=== PATIENT | female | born 1970 | race Caucasian/White ===

== ENCOUNTER → 2020-12-27 01:39 | Outpatient (CLI) | payer OTHER, SELFPAY ==
[2020-12-28 08:28] LABS: SARS-CoV-2 RNA PCR Negative
== END ==
PROVIDERS: PCP Internal Medicine; Visit Provider Internal Medicine Gastroenterology
DX: Z01.812 Encounter for preprocedural laboratory examination (principal); Z20.822 Contact with and (suspected) exposure to COVID-19
CPT/HCPCS: C9803; U0003; U0005

== ENCOUNTER 2020-12-30 01:17 | Day surgery (SDC) | payer OTHER, SELFPAY ==
[2020-12-16 14:10] VITALS: BMI 30.6
[2020-12-30 07:10] VITALS: BP 139/85; PULSE 88; RESP 16; TEMP 37.1; O2SAT 100
[2020-12-30] MEDS: LACTATED RINGERS 1,000 ML 150 ML IV CONT (07:23)
--- NOTE | 2020-12-30 07:44 | WPDANESEPPF ---
Anes - Initial Pre Proc Eval Procedure: Operation Date: 12/30/20 08:30 Proposed Procedures p Screening Colonoscopy - Jc Fountain MD Date/Time: 12/30/20 07:44 Surgeon: Jc Fountain MD Pre Op Diagnosis: Neoplasm Screening Patient Data Age: 50 Gender: F Height: 5 ft 6 in Weight: 85.6 kg Last Vital Signs Temp 98.8 F 12/30/20 07:10 Pulse 88 12/30/20 07:10 Resp 16 12/30/20 07:10 BP 139/85 12/30/20 07:10 Pulse Ox 100 12/30/20 07:10 Allergies Allergy/AdvReac Type Severity Reaction Status Date / Time No Known Allergies Allergy Verified 12/16/20 14:12 Home Medications Medication Instructions Recorded Confirmed Type calcium carbonate 600 mg calcium 600 mg PO DAILY 10/11/20 12/16/20 History (1,500 mg) tablet chlorophyll copper complex 50 mg 50 mg PO DAILY 10/11/20 12/16/20 History capsule magnesium hydroxide 400 mg/5 mL 5 ml PO DAILY PRN 10/11/20 12/16/20 History oral suspension xkbmwtfqbpck-evclhpcg-brmusk tablet 1 tablet PO DAILY 10/11/20 12/16/20 History norethindrone-eth. estradiol-iron 1 tablet PO DAILY 10/11/20 12/16/20 History 1-20 (5)/1-30(7)/1mg-35mcg(9) tablet Patient hx anesthesia problems: none Family hx anesthesia problems: none PMFSH Past Medical History Medical History (Updated 12/30/20 @ 07:39 by Justin Lion MD) Migraine Social History Social History Smoking status: Never smoker Alcohol intake: never Substance use: never Substance use type: does not use Living arrangements: alone Spiritual care concerns: No Anes - Eval Final PreProcedure Day of Procedure 12/30/20 07:44 Patient weight: normal Heart: regular rate and rhythm Lungs: clear to auscultation Airway: Mallampati scale class II Neurological: alert and oriented Last oral intake: >/= 8 hours ASA classification: II Emergent: no Anesthetic plan: proceed Anesthesia type and monitoring: general GIVS and standard monitoring Informed Consent: The patient's anesthetic plan and its attendant risks and benefits were discussed with the patient/family/POA. Questions were solicited and answers provided to the satisfaction of the patient/family/POA.
--- NOTE | 2020-12-30 08:34 | PM.HPGS ---
History of Present Illness History of Present Illness Consent: Risks, benefits, and alternatives have been discussed and questions answered. Patient agrees to proceed with procedure. Chief complaint: Neoplasm Screening Narrative: Di Canales is a 50 year old female here for first screening colonoscopy Review of Systems Constitutional: Constitutional: Denies headache(s) and Denies weakness Eyes: Eyes: Denies blurry vision ENT: Reports Normal hearing present, Denies headache(s) and Denies neck pain Cardiovascular: Cardiovascular: Denies chest pain and Denies dyspnea Respiratory: Respiratory: Denies dyspnea Gastrointestinal: Gastrointestinal: Reports no additional gastrointestinal complaints Genitourinary: Genitourinary: Denies dysuria Musculoskeletal: Musculoskeletal: Denies neck pain Integumentary/Breasts: Skin/Breast: Denies dry skin Neurologic: Reports Normal hearing present, Denies headache(s) and Denies weakness Psychiatric: Psychiatric: Denies anxiety Endocrine: Endocrine: Denies change in body appearance Hematologic/Lymphatic: Hematologic/Lymphatic: Denies easy bleeding Allergic/Immunologic: Allergic/Immunologic: Denies urticaria PMFSH Past Medical History Medical History (Updated 12/30/20 @ 07:39 by Justin Lion MD) Migraine Social History Social History Smoking status: Never smoker Alcohol intake: never Substance use: never Substance use type: does not use Living arrangements: alone Spiritual care concerns: No Meds Home Medications and Allergies Home Medications Medication Instructions Recorded Confirmed Type calcium carbonate 600 mg calcium 600 mg PO DAILY 10/11/20 12/16/20 History (1,500 mg) tablet chlorophyll copper complex 50 mg 50 mg PO DAILY 10/11/20 12/16/20 History capsule magnesium hydroxide 400 mg/5 mL 5 ml PO DAILY PRN 10/11/20 12/16/20 History oral suspension tspgkvmebogd-jruhkeaq-amiqyv tablet 1 tablet PO DAILY 10/11/20 12/16/20 History norethindrone-eth. estradiol-iron 1 tablet PO DAILY 10/11/20 12/16/20 History 1-20 (5)/1-30(7)/1mg-35mcg(9) tablet Allergies Allergy/AdvReac Type Severity Reaction Status Date / Time No Known Allergies Allergy Verified 12/16/20 14:12 Vital Signs Vital Signs - 24 hr 12/30/20 07:10 Temperature 98.8 F Pulse Rate 88 Respiratory Rate 16 Blood Pressure 139/85 Pulse Oximetry 100 Exam Const: General: comfortable and no acute distress HENMT: General nose exam: Normal nares present Eyes: General: appearance normal, both eyes and all related structures Neck: Neck: no JVD Resp: Auscultation: clear to auscultation bilaterally Cardio: Rate: regular rate Rhythm: regular rhythm GI: Inspection: non-distended GI Palp: Yes Soft to palpation Skin: General skin exam: normal color Neuro: General: gait normal Speech: normal speech Extrem: General: normal to inspection Psych: Mental Status: mental status grossly normal Assessment and Plan Assessment and plan (1) Encounter for screening colonoscopy: Code(s): Z12.11 - Encounter for screening for malignant neoplasm of colon Status: Acute Assessment and Plan: proceed with colonoscopy
[2020-12-30 08:49] VITALS: BP 94/54; PULSE 81; RESP 22; O2SAT 100
[2020-12-30 08:59] VITALS: BP 106/57; PULSE 73; RESP 20; O2SAT 99
[2020-12-30 09:09] VITALS: BP 112/70; PULSE 69; RESP 20; O2SAT 100
== END 2020-12-30 09:23 | disposition home or self-care (01) ==
PROVIDERS: PCP Internal Medicine; Visit Provider Internal Medicine Gastroenterology
PROC: 0DJD8ZZ Inspection of Lower Intestinal Tract, Via Natural or Artificial Opening Endoscopic (ICD-10-PCS; CPT 45378; principal; 2020-12-30 08:30)
DX: Z12.11 Encounter for screening for malignant neoplasm of colon (principal); D12.2 Benign neoplasm of ascending colon; K64.8 Other hemorrhoids
CPT/HCPCS: 45380; 88305; C9803; J2704; J7120; U0003; U0005

== ENCOUNTER 2021-01-31 08:29 | Outpatient (CLI) | payer OTHER, SELFPAY ==
--- NOTE | ~2021-01-31 | MM_ITS ---
EXAMINATION: MM scrn angelo implant BI w nara HISTORY: Screening mammogram TECHNIQUE: Craniocaudal and mediolateral oblique 3-D tomosynthesis images with implant displacement a nd synthetic 2-D images were generated. Craniocaudal and mediolateral oblique views of the breasts wi thout implant displacement were obtained using full field digital mammography. CAD analysis was submi tted and interpreted. COMPARISON: No prior mammogram is available for comparison at this institution. BREAST PARENCHYMAL COMPOSITION: The breasts are heterogeneously dense, which may obscure small masses . FINDINGS: Status post bilateral augmentation mammoplasty. There is no evidence of suspicious mass, ca lcification, or architectural distortion to suggest malignancy in either breast. There has been no mitchell spicious interval change. IMPRESSION: 1. No mammographic evidence of malignancy. 2. Recommend routine screening mammography in one year. BI-RADS Category 1: Negative Reviewed, dictated and finalized at location A.
== END 2021-01-31 08:30 | disposition home or self-care (01) ==
LOC: ANHIMG 08:32
PROVIDERS: PCP Internal Medicine; Visit Provider Obstetrics & Gynecology
DX: Z12.31 Encounter for screening mammogram for malignant neoplasm of breast (principal)
CPT/HCPCS: 77063; 77067

== ENCOUNTER → 2021-08-28 08:58 | Outpatient (CLI) | payer OTHER, SELFPAY ==
--- NOTE | ~2021-08-28 | XR_ITS ---
EXAMINATION: XR_[id number]_CR EXAM DATE: 08/28/2021 09:22 INDICATION: Radiculopathy, cervical region. TECHNIQUE: Cervical spine frontal, lateral, lateral swimmers, and open-mouth odontoid projections. There is no prior study for comparison. FINDINGS: There is moderate disc disease at C5-6, mild at C4-5. There is 2-3 mm anterolisthesis C4 o n C5, degenerative with mild loss of this disc height. The vertebral body and disc heights are otherw ise well maintained. The vertebral bodies are otherwise aligned. There are no acute fractures identif ied. The odontoid process is intact. The lateral masses of C1 line up with C2. Prevertebral soft tis yuliana and pre-dens space are within normal limits. There is mild to moderate cervical arthropathy. Lung apices are clear. IMPRESSION: 1. Grade 1 anterolisthesis C4 on C5. 2. Moderate disc disease C5-6. 3. Mild to moderate arthropathy. Reviewed, dictated and finalized at location A.
== END ==
PROVIDERS: PCP Internal Medicine; Visit Provider Internal Medicine
DX: M54.12 Radiculopathy, cervical region (principal); M50.322 Other cervical disc degeneration at C5-C6 level
CPT/HCPCS: 72040

== ENCOUNTER 2022-03-17 08:52 | Outpatient (CLI) | payer OTHER, SELFPAY ==
--- NOTE | ~2022-03-17 | MM_ITS ---
EXAMINATION: MM scrn angelo implant BI w nara HISTORY: Screening mammogram TECHNIQUE: Craniocaudal and mediolateral oblique 3-D tomosynthesis images with implant displacement a nd synthetic 2-D images were generated. Craniocaudal and mediolateral oblique views of the breasts wi thout implant displacement were obtained using full field digital mammography. CAD analysis was submi tted and interpreted. COMPARISON: 01/31/2021 bilateral implant screening mammogram BREAST PARENCHYMAL COMPOSITION: The breasts are heterogeneously dense, which may obscure small masses . FINDINGS: Status post bilateral augmentation mammoplasty. There is no evidence of suspicious mass, ca lcification, or architectural distortion to suggest malignancy in either breast. There has been no mitchell spicious interval change. IMPRESSION: 1. No mammographic evidence of malignancy. 2. Recommend routine screening mammography in one year. BI-RADS Category 1: Negative Reviewed, dictated and finalized at location A.
== END 2022-03-17 08:53 | disposition home or self-care (01) ==
LOC: ANHIMG 08:53
PROVIDERS: PCP Internal Medicine; Visit Provider Obstetrics & Gynecology
DX: Z12.31 Encounter for screening mammogram for malignant neoplasm of breast (principal)
CPT/HCPCS: 77063; 77067

== ENCOUNTER → 2022-06-30 13:35 | Outpatient (CLI) | payer OTHER, SELFPAY ==
--- NOTE | ~2022-06-30 | XR_ITS ---
EXAMINATION: XR hip BI 2V w AP pelvis, XR femur RT min 2V, XR femur LT min 2V DATE: 06/30/2022 14:20 INDICATION: 4 months of aching pain starting in the hips and radiating down to the bilateral lower le gs TECHNIQUE: 1. Anteroposterior view of the pelvis and anteroposterior and frog-leg lateral views of the left hip and anteroposterior and frog-leg lateral views of the right hip and were obtained. 2. Anteroposterior and lateral views of the more distal left femur were obtained. 3. Anteroposterior and lateral views of the more distal right femur were obtained. COMPARISON: None. FINDINGS: Normal alignment at the pelvis, bilateral hips and knees. No fractures. No suspected osteonecrosis at the femoral heads. Bilateral hip, sacroiliac and knee joint spaces appear relatively preserved on mitchell pine imaging. No knee joint effusions. There is lower lumbar facet osteoarthritis and at least 3 mm l eft lateral listhesis L4 on L5. Soft tissues are unremarkable. IMPRESSION: 1. Lower lumbar spondylosis evident on the frontal projection of the pelvis which is insufficient for diagnostic assessment. Otherwise unremarkable radiographs of the pelvis and bilateral hips and femur s. Reviewed, dictated and finalized at location A. IMPRESSION: 1. Lower lumbar spondylosis evident on the frontal projection of the pelvis i is insufficient for diagnostic assessment. Otherwise unremarkable radiograph s of the pelvis and bilateral hips and femurs. IMPRESSION: 1. Lower lumbar spondylosis evident on the frontal projection of the pelvis whi is insufficient for diagnostic assessment. Otherwise unremarkable radiograph s of the pelvis and bilateral hips and femurs.
== END ==
PROVIDERS: PCP Internal Medicine; Visit Provider Internal Medicine
DX: M25.551 Pain in right hip (principal); M25.552 Pain in left hip; M79.662 Pain in left lower leg; M79.652 Pain in left thigh; M47.896 Other spondylosis, lumbar region
CPT/HCPCS: 73521; 73552

== ENCOUNTER → 2022-08-07 09:39 | Outpatient (CLI) | payer OTHER, SELFPAY ==
--- NOTE | ~2022-08-07 | MR_ITS ---
EXAMINATION: MR brain/brain stem wo con DATE: 08/07/2022 10:16 INDICATION: Dizziness. TECHNIQUE: Magnetic resonance imaging (MRI) of the brain and brainstem was performed without intraven ous contrast. COMPARISON: None. FINDINGS: There is no intracranial hemorrhage, acute infarction, or abnormal intracranial mass lesion . The ventricles are normal in size. The mastoid air cells are normal. There is mild mucosal thickeni ng in the ethmoid sinuses. The orbits are normal. IMPRESSION: 1. Normal brain. Reviewed, dictated and finalized at location A. IMPRESSION: 1. Normal brain.
== END ==
PROVIDERS: PCP Internal Medicine; Visit Provider Internal Medicine
DX: R42 Dizziness and giddiness (principal)
CPT/HCPCS: 70551

== ENCOUNTER → 2022-08-15 07:37 | Outpatient (CLI) | payer OTHER, SELFPAY ==
--- NOTE | ~2022-08-15 | MR_ITS ---
EXAMINATION: MR lumbar spine wo con DATE: 08/15/2022 08:18 INDICATION: Bilateral hip and leg pain. TECHNIQUE: Magnetic resonance imaging (MRI) of the lumbar spine was performed without intravenous con trast. Sequences included sagittal T2-weighted FSE, sagittal T2-weighted FS FSE, sagittal T1-weighted FSE, and axial T2-weighted FSE. COMPARISON: None FINDINGS: There is 3 degrees levocurvature of lumbar spine. There is 2 mm retrolisthesis of L2 on L3 and L3 on L4. There is mild chronic anterior wedging of T11 vertebral body. There is moderately decre ased disc height at T10-T11 and T11-T12, mildly decreased disc height at L1-L2, L3-L4, and L4-L5, and severely decreased disc height at L5-S1 with endplate remodeling. The distal spinal cord signal inte nsity is normal. The conus medullaris is at L2. The following disc levels are specifically discussed: L1-L2: The disc is bulging. There is no facet joint osteoarthritis. There is mild bilateral neural fo raminal stenosis. There is mild central canal stenosis. L2-L3: The disc is bulging. There is mild bilateral facet joint osteoarthritis. There is mild bilater al neural foraminal stenosis. There is mild central canal stenosis. L3-L4: The disc is bulging. There is mild bilateral facet joint osteoarthritis. There is mild bilater al neural foraminal stenosis. There is mild central canal stenosis. L4-L5: The disc is bulging and has an annular fissure. There is severe bilateral facet joint osteoart hritis. There is mild bilateral neural foraminal stenosis. There is mild central canal stenosis. L5-S1: The disc is bulging and has an annular fissure. There is severe right and moderate left facet joint osteoarthritis. There is mild bilateral neural foraminal stenosis. There is mild central canal stenosis. IMPRESSION: 1. Severe lumbar spondylosis. Reviewed, dictated and finalized at location A.
== END ==
PROVIDERS: PCP Internal Medicine; Visit Provider Internal Medicine
DX: M25.551 Pain in right hip (principal); M25.552 Pain in left hip; R29.898 Other symptoms and signs involving the musculoskeletal system; M47.896 Other spondylosis, lumbar region
CPT/HCPCS: 72148

== ENCOUNTER 2022-11-03 12:38 | Outpatient (CLI) | payer OTHER, SELFPAY | END 2022-11-03 12:39 | disposition home or self-care (01) | LOC: ANHAUDIO 12:39 | PROVIDERS: PCP Internal Medicine; Visit Provider Otolaryngology | DX: H93.11 Tinnitus, right ear (principal) | CPT/HCPCS: 92552; 92556; 92567 ==

== ENCOUNTER → 2023-02-05 08:10 | Outpatient (CLI) | payer OTHER, SELFPAY ==
--- NOTE | ~2023-02-05 | CT_ITS ---
EXAMINATION: CT lumbar spine wo con DATE: 02/05/2023 08:27 INDICATION: Low back pain radiating down both legs. TECHNIQUE: Computed tomography (CT) of the lumbar spine was performed without intravenous contrast. A utomated exposure control and iterative reconstruction technique were employed. The dose-length produ ct was 730.61 mGy-cm. COMPARISON: Lumbar spine MRI 08/15/2022 FINDINGS: There are calcified fibroids in the uterus. There is 9 degrees levocurvature of lumbar spin e. Vertebral body heights are normal. There is severely decreased disc height at T11-T12, moderately decreased disc height at L1-L2, mildly decreased disc height at L3-L4 and L4-L5, and severely decreas ed disc height at L5-S1. The following disc levels are specifically discussed: L1-L2: The disc is bulging. There is mild bilateral facet joint osteoarthritis. There is mild bilater al neural foraminal stenosis. There is mild central canal stenosis. L2-L3: The disc is bulging. There is mild bilateral facet joint osteoarthritis. There is mild bilater al neural foraminal stenosis. There is mild central canal stenosis. L3-L4: The disc is bulging. There is mild bilateral facet joint osteoarthritis. There is mild bilater al neural foraminal stenosis. There is mild central canal stenosis. L4-L5: The disc is bulging. There is severe bilateral facet joint osteoarthritis. There is mild bilat eral neural foraminal stenosis. There is mild central canal stenosis. L5-S1: The disc is bulging. There is moderate bilateral facet joint osteoarthritis. There is mild abeba ateral neural foraminal stenosis. There is mild central canal stenosis. IMPRESSION: 1. Severe lumbar spondylosis. Reviewed, dictated and finalized at location A.
== END ==
PROVIDERS: PCP Chiropractor; Visit Provider Neurological Surgery
DX: M47.816 Spondylosis without myelopathy or radiculopathy, lumbar region (principal)
CPT/HCPCS: 72131

== ENCOUNTER 2023-05-10 07:25 | Outpatient (CLI) | payer OTHER, SELFPAY ==
--- NOTE | ~2023-05-10 | MM_ITS ---
EXAMINATION: MM scrn angelo implant BI w nara HISTORY: Screening mammogram TECHNIQUE: Craniocaudal and mediolateral oblique 3-D tomosynthesis images with implant displacement a nd synthetic 2-D images were generated. Craniocaudal and mediolateral oblique views of the breasts wi thout implant displacement were obtained using full field digital mammography. CAD analysis was submi tted and interpreted. COMPARISON: Comparison to multiple prior studies sequentially, with oldest reviewed study dated 06/2021. BREAST PARENCHYMAL COMPOSITION: The breasts are heterogeneously dense, which may obscure small masses FINDINGS: There is no evidence of suspicious mass, calcification, or architectural distortion to sugg est malignancy in either breast. There has been no suspicious interval change. IMPRESSION: 1. No mammographic evidence of malignancy. 2. Recommend routine screening mammography in one year. BI-RADS Category 1: Negative Reviewed, dictated and finalized at location A.
== END 2023-05-10 07:26 | disposition home or self-care (01) ==
LOC: ANHIMG 07:28
PROVIDERS: PCP Family Medicine; Visit Provider Obstetrics & Gynecology
DX: Z12.31 Encounter for screening mammogram for malignant neoplasm of breast (principal)
CPT/HCPCS: 77063; 77067

== ENCOUNTER 2024-05-12 08:35 | Outpatient (CLI) | payer OTHER, SELFPAY ==
--- NOTE | ~2024-05-12 | MM_ITS ---
EXAMINATION: MM scrn angelo implant BI w nara HISTORY: Screening mammogram TECHNIQUE: Craniocaudal and mediolateral oblique 3-D tomosynthesis images with implant displacement a nd synthetic 2-D images were generated. Craniocaudal and mediolateral oblique views of the breasts wi thout implant displacement were obtained using full field digital mammography. CAD analysis was submi tted and interpreted. COMPARISON: Comparison to multiple prior studies sequentially, with oldest reviewed study dated 06/2021. BREAST PARENCHYMAL COMPOSITION: Dense: The breasts are heterogeneously dense, which may obscure small masses FINDINGS: There is no evidence of suspicious mass, calcification, or architectural distortion to sugg est malignancy in either breast. There has been no suspicious interval change. IMPRESSION: 1. No mammographic evidence of malignancy. 2. Recommend routine screening mammography in one year. BI-RADS Category 1: Negative Reviewed, dictated and finalized at location B.
== END 2024-05-12 08:36 | disposition home or self-care (01) ==
LOC: ANHIMG 08:38
PROVIDERS: PCP Family Medicine; Visit Provider Obstetrics & Gynecology
DX: Z12.31 Encounter for screening mammogram for malignant neoplasm of breast (principal)
CPT/HCPCS: 77063; 77067

== ENCOUNTER 2024-12-05 07:29 | Outpatient (CLI) | payer OTHER, SELFPAY ==
--- OUTSIDE RECORDS SUMMARY | 2024-12-05 07:35 | XMS_ITS | Encounter Summary ---
Author Organization [facility] Address [address] [place] [address] Care Team Providers Care Terminal Makeup Operator Name Role Phone Unavailable Primary Care Provider Unavailabl e Encounter Details Date Type Department Care Team (Late st Contact Info) Description 07/25/2001 Outpatient Historical [facility] [phone] [address] Juan Hector MD [address] [place] [id number] Social History Tobacco Use Types Packs/Day Years Used Date Smoking Tobacco: Never Assessed Comments Unknown Sex and Gender Information Value Date Recorded Sex Assigned at Not on file 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
--- OUTSIDE RECORDS SUMMARY | 2024-12-05 07:35 | XMS_ITS | Encounter Summary ---
Author Organization [facility] Address [address] [place] [address] Care Team Providers Care Public Relations Director Name Role Phone Unavailable Primary Care Provider Unavailabl e Encounter Details Date Type Department Care Team (Late st Contact Info) Description 04/25/2001 Outpatient Historical 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
--- OUTSIDE RECORDS SUMMARY | 2024-12-05 07:35 | XMS_ITS | Patient Health Summary ---
Author Organization [facility] Address [address] [place] [address] Care Team Providers Care Health Promotion Officer Name Role Phone Alfredo Diamond MD Primary Care Provider [phone] Note from [facility],non-owned Affiliates and Associated Physician Practices is amultiple site organization consisting of ambulatory clinics and hospital sitesin [place], [place], [place] and [place]. This disclosure is being madepursuant to the Care Everywhere program and may not contain all information available regarding this patient. Last updated 18.[facility] Allergies No known active allergies Medications * Be aware that medications may not be up to date on this document. Alwaysverify current medications with the patient. * tretinoin (RETIN-A) 0.1 % cream(Started 01/01/2012) Apply to affected area at bedtime. * Calcium Carbonate Antacid (TUMS PO) Take 1 Tab by mouth as needed. * Multiple Vitamin (MULTI-VITAMIN DAILY PO) Take 1 Tab by mouth once daily. unsure of dose. * calcium carbonate (Caltrate) 600 MG tablet Take 1 (one) tablet by mouth 2 times daily * vitamin D, ergocalciferol, (DRISDOL) 64899 UNITS capsule(Started 10/12/2018) Take 1 capsule by mouth every 7 days 1 refill remaining * biotin 5 MG tablet Take 1 (one) tablet by mouth once daily * norethindrone-ethinyl estradiol (Femhrt 10/29) 1-5 MG-MCG tablet(Started 09/04/2024) Take 1 (one) tablet by mouth once daily 3 refills by 09/04/2025 Active Problems Problem Noted Date Diagnosed Date Musculoskeletal pain 04/11/2013 Vitamin D deficiency 02/08/2012 Weight gain 01/10/2012 Cold hands 01/10/2012 Fatigue 01/10/2012 Hair thinning 01/10/2012 Screening for cervical cancer 01/10/2012 GERD (gastroesophageal reflux disease) Resolved Problems Problem Noted Date Diagnosed Date Resolved Date Elevated BP 01/10/2012 02/08/2012 Generalized headaches 2011 Social History Tobacco Use Types Packs/Day Years Used Date Smoking Tobacco: Never Smokeless Tobacco: Never Tobacco Cessation:Counseling Given: Not Answered Alcohol Use Standard Drinks/Week Comments Yes 0 (1 standard drink = 0.6 oz pur e alcohol) occasional PHQ-2 Answer Date Recorded Patient Health Questionnaire-2 Score 0 08/23/2023 Sex and Gender Information Value Date Recorded Sex Assigned at Not on file Gender Identity Not on file Sexual Orientation Not on file Last Filed Vital Signs Vital Sign Reading Time Taken Comments Blood Pressure 126/82 10/16/2024 10:19 AM BOOTH USHER Pulse 66 04/11/2013 9:00 PM CDT Temperature 36.8 C (98.2 F) 04/11/2013 4:42 PM CDT Respiratory Rate 20 04/11/2013 9:00 PM CDT Oxygen Saturation 96% 04/11/2013 9:00 PM CDT Inhaled Oxygen Concentration - - Weight 81.6 kg (180 lb) 09/04/2024 9:06 AM BOOTH USHER Height 164 cm (5' 4.57 ) 10/16/2024 10:19 AM BOOTH USHER Body Mass Index 30.36 09/04/2024 9:06 AM BOOTH USHER Procedures * CT ABDOMEN PELVIS W CONTRAST(Performed 11/03/2024) Performed for Pelvic pain in female * NON-OB PELVIC SONOGRAM(Performed 10/16/2024) Performed for Pelvic pain in female * PAP IG LB+HPV APTIMA(Performed 09/04/2024) Performed for Well woman exam * OCCULT BLOOD FECES 1-3 SCREEN POINT OF CARE (AMB)(Performed 09/04/2024) Performed for Colon cancer screening * MAMMOGRAM(Performed 05/12/2024) * PAP IG LB+HPV APTIMA(Performed 08/23/2023) Performed for Well woman exam * OCCULT BLOOD FECES 1-3 SCREEN POINT OF CARE (AMB)(Performed 08/23/2023) Performed for Colon cancer screening * PAP IG LB+HPV APTIMA(Performed 07/24/2022) Performed for Well woman exam * OCCULT BLOOD FECES 1-3 SCREEN POINT OF CARE (AMB)(Performed 07/24/2022) Performed for Colon cancer screening * MAMMO BILAT SCREENING(Performed 03/17/2022) Performed for Well woman exam * PAP IG LB+HPV APTIMA(Performed 07/18/2021) Performed for Well woman exam * OCCULT BLOOD FECES 1-3 SCREEN POINT OF CARE (AMB)(Performed 07/18/2021) Performed for Colon cancer screening * MAMMO BILAT SCREENING(Performed 01/31/2021) Performed for Well woman exam * US TRANSVAGINAL NON OB(Performed 05/09/2020) Performed for Lower abdominal pain * FSH(Performed 04/22/2020) Performed for Encounter for surveillance of contraceptive pills * PAP IG LB + HPV HR(Performed 04/12/2020) Performed for Well woman exam * URINALYSIS AUTO - POINT OF CARE (AMB) STL(Performed 04/12/2020) Performed for Dysuria * OCCULT BLOOD FECES 1-3 SCREEN POINT OF CARE (AMB)(Performed 04/12/2020) Performed for Colon cancer screening * MAMMOGRAPHY ORDER(Performed 01/04/2019) * US TRANSVAGINAL NON OB(Performed 12/09/2018) Performed for Enlarged uterus * FSH(Performed 12/05/2018) Performed for Encounter for surveillance of contraceptive pills * PAP IG LB + HPV HR(Performed 11/26/2018) Performed for Well woman exam * OCCULT BLOOD FECES 1-3 SCREEN POINT OF CARE (AMB)(Performed 11/26/2018) Performed for Colon cancer screening * CBC W AUTO DIFFERENTIAL(Performed 10/30/2017) Performed for Well woman exam * VITAMIN D 25-HYDROXY(Performed 10/30/2017) Performed for Well woman exam * COMPREHENSIVE METABOLIC PANEL(Performed 10/30/2017) Performed for Well woman exam * LIPID PROFILE W TCHOL/HDL(Performed 10/30/2017) Performed for Well woman exam * TSH(Performed 10/30/2017) Performed for Well woman exam * PAP IG LB + HPV HR(Performed 10/30/2017) Performed for Well woman exam * MAMMO SCREENING BILATERAL(Performed 12/18/2016) * PAP IG LB + HPV HR(Performed 10/22/2016) Performed for Well woman exam * CBC W AUTO DIFFERENTIAL(Performed 06/21/2013) Performed for Family history of ischemic heart disease * BASIC METABOLIC PANEL (CALCIUM TOTAL)(Performed 06/21/2013) Performed for Family history of ischemic heart disease * LDL CHOLESTEROL DIRECT(Performed 06/21/2013) Performed for Family history of ischemic heart disease * LIPID PROFILE(Performed 06/21/2013) Performed for Family history of ischemic heart disease * HEMOGLOBIN A1C(Performed 06/21/2013) Performed for Family history of ischemic heart disease * CT ANGIO CHEST PULM EMBOLISM(Performed 04/11/2013) * URINALYSIS REFLEX TO MICROSCOPIC NO CULTURE(Performed 04/11/2013) * XR CHEST 2VW(Performed 04/11/2013) * US ABDOMEN LIMITED(Performed 04/11/2013) * HCG URINE QUALITATIVE - POINT OF CARE(Performed 04/11/2013) * HCG URINE QUALITATIVE(Performed 04/11/2013) * COMPREHENSIVE METABOLIC PANEL(Performed 04/11/2013) * CBC W AUTO DIFFERENTIAL(Performed 04/11/2013) * EKG 12-LEAD(Performed 04/11/2013) * VITAMIN D 25-HYDROXY(Performed 01/05/2012) Performed for Special screening for osteoporosis * TSH(Performed 01/05/2012) Performed for Cold hands, Fatigue, Hair thinning, Weight gain * VITAMIN B12(Performed 01/05/2012) Performed for Fatigue, Hair thinning * CBC W AUTO DIFFERENTIAL(Performed 01/05/2012) Performed for Routine general medical examination at a health care facility, Anemia * COMPREHENSIVE METABOLIC PANEL(Performed 01/05/2012) Performed for Routine general medical examination at a health care facility * LIPID PROFILE(Performed 01/05/2012) Performed for Routine general medical examination at a health care facility, Screening cholesterol level * NM HEPATOBILIARY WO EF(Performed 06/01/2011) * LAB RESULTS ORDER(Performed 05/28/2011) * GROSS + MICRO EXAM(Performed 05/15/2011) * GROSS + MICRO EXAM(Performed 05/15/2011) * HELICOBACTER PYLORI UREASE(Performed 05/15/2011) * HCG URINE QUALITATIVE - POINT OF CARE(Performed 05/15/2011) * ENDOSCOPY ORDER(Performed 05/15/2011) * LIPID PROFILE(Performed 12/11/2010) Performed for HLD (hyperlipidemia) * COMPREHENSIVE METABOLIC PANEL(Performed 12/11/2010) Performed for HLD (hyperlipidemia) * CBC W AUTO DIFFERENTIAL(Performed 12/11/2010) Performed for Anemia * VITAMIN D 25-HYDROXY(Performed 06/16/2010) Performed for Anemia * VITAMIN B12 FOLATE PANEL(Performed 06/16/2010) Performed for Anemia * IRON + TIBC PANEL(Performed 06/16/2010) Performed for Anemia * LIPID PROFILE(Performed 06/16/2010) Performed for Hld (Hyperlipidemia) * CBC W AUTO DIFFERENTIAL(Performed 06/16/2010) Performed for Anemia * PROLACTIN(Performed 12/19/2009) Performed for Physical Exam * FSH + LH PANEL(Performed 12/19/2009) Performed for Physical Exam * TSH(Performed 12/19/2009) Performed for Stress Reaction * LIPID PROFILE(Performed 12/19/2009) Performed for Physical Exam * COMPREHENSIVE METABOLIC PANEL(Performed 12/19/2009) Performed for Physical Exam * CBC W AUTO DIFFERENTIAL(Performed 12/19/2009) Performed for Physical Exam * PROLACTIN(Performed 08/27/2008) * ERYTHROCYTE SEDIMENTATION RATE(Performed 08/27/2008) * MARBELLA BLOOD SCREEN W/REFLEX TITER(Performed 08/27/2008) * FSH + LH PANEL(Performed 08/27/2008) * THYROID PANEL W TSH (TSH,T4,T3 UPTAKE,FTI)(Performed 08/27/2008) Results * CT ABDOMEN AND PELVIS WITH IV CONTRAST (11/03/2024) Anatomical Region Laterality Modality Abdomen, Pelvis Other 11/03/[address] ORDERABLES * NON-OB PELVIC SONOGRAM (10/16/2024 10:33 AM BOOTH USHER) Linked Results Indication ======== Follow-up on pelvic pain Assessment Cycle: post menopause Method ====== Transvaginal ultrasound Uterus ====== Appears normal Position: anteverted Endometrium: measures within normal limits. Endometrial thickness, total 2.1 mm Cervix details: normal No polyps identified Fibroid(s) 1. Size 20 mm x 19 mm x 27 mm. Mean 22.0 mm. Vol 5.372 cm . Smooth bordered margin 2. Size 18 mm x 14 mm x 14 mm. Mean 15.3 mm. Vol 1.847 cm . Pedunculated Right Ovary ========= Appears normal. Outline: smooth. Size 29 mm x 14 mm x 17 mm Left Ovary ======== Not visualized Cul de Sac ========= Visualized. No free fluid visualized Impression ========= Pedunculated fibroid and . Intramural fibroid, endometrium within normal limits for post menopause. Lt ovary not visualized due to excess bowel gas The uterus is seen anteverted slightly enlarged in size and normal in shape. The EC is seen and is normal in thickness and appearance. There are two fibroid present one is pedunculated and the other intramural. The right ovary is seen and is normal in size and appearance. The left ovary is not seen today due to bowel gas. There is no free fluid in the pelvis. Coding ====== Procedures [id number]: US Transvaginal Non OB [employer] PACS Anatomical Region Laterality Modality Other 10/16/2024 10:3 3 AM BOOTH USHER Buck Carreno MD [facility] ORDERABLES * PAP IG LB+HPV APTIMA (09/04/2024 10:09 AM BOOTH USHER) Only the most recent of4 resultswithin the time period is included. Diagnosis Comment [facility] INSURANCE BILL Comment: NEGATIVE FOR INTRAEPITHELIAL LESION OR MALIGNANCY. CELLULAR CHANGES ASSOCIATED WITH ATROPHY ARE PRESENT. Specimen Adequacy Comment [facility] INSURANCE BILL Comment: Satisfactory for evaluation. Endocervical component may not be distinguished in cases of atrophy. Clinician Provided ICD10 Comment [facility] INSURANCE BILL Comment:Z01.419 Performed by Comment [facility] INSURANCE BILL Comment:Diamond López, Cytot echnologist (ASCP) Comment . [facility] INSURANCE BILL Note Comment [facility] INSURANCE BILL Comment: The Pap smear is a screening test designed to aid in the detection of premalignant and malignant conditions of the uterine cervix. It is not a diagnostic procedure and should not be used as the sole means of detecting cervical cancer. Both false-positive and false-negative reports do occur. [facility] CPT Code Automation Comment [facility] INSURANCE BILL Comment: This liquid based ThinPrep(R) pap test was screened with the use of an image guided system. Human papillomavirus Aptima Negative Negative [facility] INSURANCE BILL Comment: This nucleic acid amplification test detects fourteen high-risk HPV types (16,18,31,33,35,39,45,51,52,56,58,59,66,68) without differentiation. Pathology/Cytolog y PART OF UTERINE CERVIX / Unknown 09/04/2024 10:09 AM BOOTH USHER 09/04/2024 Comment:Cervix Release to román Del Rio [facility] INSURANCE BILL - 09/11/2024 1:08 PM BOOTH USHER Performed at: 01 - [address] [id number] Security Guard Dispatcher: Leeann Mcclain MD, Phone: [phone] Performed at: 02 - [address] [id number] Security Guard Dispatcher: Leeann Mcclain MD, Phone: [phone] Specimen Comment: [id number] Specimen Comment: No. of containers..01 ThinPrep Vial Buck Carreno MD LAB - PATHOLOGY/CYT OLOGY ORDERABLES [facility] INSURANCE BILL [address] [place] [address] * OCCULT BLOOD FECES 1-3 SCREEN POINT OF CARE (AMB) (09/04/2024 9:36 AM BOOTH USHER) Only the most recent of6 resultswithin the time period is included. Occult Blood 1 neg Negative [facility] Occult Blood 2 [facility] Occult Blood 3 [facility] Card Lot Number [id number] Card Exp Date [facility] Developer Lot Number [id number] Developer Expiration Date [facility] QC Negative [facility] QC Positive [facility] Stool STOOL SPECIMEN / Unknown 09/04/2024 9:36 AM BOOTH USHER Buck Carreno MD LAB - POINT OF CARE ORDERABLES [facility] [address] [place] [address], [facility] [phone] * MAMMOGRAM (05/12/2024) Anatomical Region Laterality Modality Other 05/12/2024 Narrative 05/12/2024 Ordered by an unspecified provider. Scanned Document SCANNING ONLY * MAMMO BILAT SCREENING (03/17/2022) Only the most recent of2 resultswithin the time period is included. Anatomical Region Laterality Modality Breast Bilateral Mammography 03/17/2022 Buck Carreno MD MAMMO ORDERABLES * US TRANSVAGINAL NON OB (05/09/2020 2:42 PM CDT) Only the most recent of2 resultswithin the time period is included. Anatomical Region Laterality Modality Abdomen Ultrasound Narrative 05/09/2020 2:42 PM CDT Buck Carreno MD 05/09/2020 3:47 PM [facility] HOME HEALTH AIDE AMHERSTDALE CREDIT RISK MODELER PELVIC ULTRASOUND Pt. Name: Federica Canales : 1970 Exam Date: 05/09/2020 LMP: Patient's last menstrual period was 10/31/2018 (lmp unknown). BMI: 31.78 kg/m2 Referring Physician: Sarah Carreno Reason for Scan: History of fibroids. RLQ pain Transabdominal: No Transvaginal: Yes Uterine orientation: Normal Uterine measurements: Length 8.52 cm. Width 4.89 cm. Height 4.03 cm. Volume 87.913 cc Endometrial thickness: 7.42 mm Left Ovary: Length 2.52 cm. Width 1.33 cm. Height 1.20 cm. Volume 2.106 cc Right Ovary: Length 2.18 cm. Width 1.78 cm. Height 1.44 cm. Volume 2.926 cc Cul de Sac: Negative for free fluid CPT: 87543 Post Hole Digging Machine Operator comments: Multiple fibroids, 1.9cm, 2.8cm, 0.9cm, 0.6cm and 2.0cm. Physician Interpretation: The uterus is seen and is anteverted normal in size and shape. There are at least five fibroids present measuring 0.6, 0.9, 1.9, 2.0 and 2.8 cms in mean diameter. Since her last US in Nov 2018 the fibroids are smaller and the uterus is also smaller in volume. The EC is seen and is normal in thickness. The left ovary is seen and is normal in size and appearance. The right ovary is seen and is normal in size and appearance. Since her last US in Nov 2018 the cyst in the right ovary has resolved. There is no free fluid present in the pelvis. Post Hole Digging Machine Operator: Evelia Felix RDMS, RT(R) Images will be scanned into the record. Interpreting Physician: Sarah Carreno Procedure Note Evelia Felix A - 05/09/2020 2:42 PM CDT [facility] HOME HEALTH AIDE AMHERSTDALE CREDIT RISK MODELER PELVIC ULTRASOUND Pt. Name: Federica Canales : 1970 Exam Date: 05/09/2020 LMP: Patient's last menstrual period was 10/31/2018 (lmp unknown). BMI: 31.78 kg/m2 Referring Physician: Sarah Carreno Reason for Scan: History of fibroids. RLQ pain Transabdominal: No Transvaginal: Yes Uterine orientation: Normal Uterine measurements: Length 8.52 cm. Width 4.89 cm. Height 4.03 cm. Volume 87.913 cc Endometrial thickness: 7.42 mm Left Ovary: Length 2.52 cm. Width 1.33 cm. Height 1.20 cm. Volume 2.106 cc Right Ovary: Length 2.18 cm. Width 1.78 cm. Height 1.44 cm. Volume 2.926 cc Cul de Sac: Negative for free fluid CPT: 54597 Post Hole Digging Machine Operator comments: Multiple fibroids, 1.9cm, 2.8cm, 0.9cm, 0.6cm and 2.0cm. Physician Interpretation: The uterus is seen and is anteverted normal insize and shape. There are at least five fibroids present measuring 0.6,0.9, 1.9, 2.0 and 2.8 cms in mean diameter. Since her last US in Nov 2018the fibroids are smaller and the uterus is also smaller in volume. The ECis seen and is normal in thickness. The left ovary is seen and is normalin size and appearance. The right ovary is seen and is normal in size andappearance. Since her last US in Nov 2018 the cyst in the right ovary hasresolved. There is no free fluid present in the pelvis. Post Hole Digging Machine Operator: Evelia Felix RDMS, RT(R) Images will be scanned into the record. Interpreting Physician: Sarah Crareno Buck Carreon MD US ORDERABLES * FSH (04/22/2020 8:06 AM CDT) Only the most recent of2 resultswithin the time period is included. FSH 65.4 mIU/mL [facility] ACCOUNT BILL Comment: Adult Female: Follicular phase 3.5 - 12.5 Ovulation phase 4.7 - 21.5 Luteal phase 1.7 - 7.7 Postmenopausal 25.8 - 134.8 FASTING Blood BLOOD SPECIMEN / Unknown 04/22/2020 8:06 AM CDT 04/22/2020 Narrative Resulting Agency Comment Lab Testing performed at: [facility] [address] [id number] Buck Carreno MD LAB - CHEMISTRY ORD ERABLES [facility] ACCOUNT BILL [address] [place] [address] * PAP IG LB + HPV HR (04/12/2020 11:45 AM CDT) Only the most recent of4 resultswithin the time period is included. Diagnosis [facility] ACCOUNT BILL Comment:NEGATIVE FOR INTRAEP ITHELIAL LESION OR MALIGNANCY. Specimen Adequacy [facility] ACCOUNT BILL Comment: Satisfactory for evaluation. Endocervical and/or squamous metaplastic cells (endocervical component) are present. Clinician Provided ICD10 [facility] ACCOUNT BILL Comment: Z01.419 Z12.11 D25.0 D25.2 R30.0 R10.30 Performed by [facility] ACCOUNT BILL Comment:Uzma Quiros, Cytotec hnologist (ASCP) Comment . [facility] ACCOUNT BILL Note [facility] ACCOUNT BILL Comment: The Pap smear is a screening test designed to aid in the detection of premalignant and malignant conditions of the uterine cervix. It is not a diagnostic procedure and should not be used as the sole means of detecting cervical cancer. Both false-positive and false-negative reports do occur. . IGLBP CPT Code Automation [facility] ACCOUNT BILL Comment: This liquid based ThinPrep(R) pap test was screened with the use of an image guided system. Human papillomavirus High Risk Negative Negative [facility] ACCOUNT BILL Comment: This nucleic acid amplification high-risk HPV test detects thirteen high-risk types (16,18,31,33,35,39,45,51,52,56,58,59,68) without differentiation. Pathology/Cytolog y PART OF UTERINE CERVIX / Unknown 04/12/2020 11:45 AM CDT 04/12/2020 Narrative [facility] ACCOUNT BILL - 04/17/2020 11:09 AM CDT No. of containers..01 ThinPrep Vial Resulting Agency Comment Lab Testing performed at: [address] [id number] Buck Carreno MD LAB - PATHOLOGY/CYT OLOGY ORDERABLES [facility] ACCOUNT BILL [address] [place] [address] * URINALYSIS AUTO - POINT OF CARE (AMB) STL (04/12/2020) Clarity UA POCT clear Color UA POCT yellow Leukocyte UA neg Negative Nitrite UA POCT neg Negative Urobilinogen UA 0.2 0.1 - 1.0 Protein UA POCT neg Negative pH UA 5.5 5.0 - 8.0 pH units Blood UA trace Negative Specific Speculator UA POCT 1.025 1.002 - 1.030 Ketone UA neg Negative Bilirubin UA POCT neg Negative Glucose UA neg Negative Expiration Date z Lot # z QC Verified Yes Yes Urine URINE / Unknown 04/12/2020 Buck Carreno MD LAB - POINT OF CARE ORDERABLES * MAMMOGRAPHY ORDER (01/04/2019) Anatomical Region Laterality Modality Mammography Scanned Document MAMMO ORDERABLES * (ABNORMAL) LIPID PROFILE W TCHOL/HDL (10/30/2017 10:14 AM BOOTH USHER) Cholesterol 212(H) 100 - 199 mg/dL [facility] ACCOUNT BILL Triglycerides 131 0 - 149 mg/dL [facility] ACCOUNT BILL HDL Cholesterol 51 >39 mg/dL [facility] ACCOUNT BILL VLDL Calculated 26 5 - 40 mg/dL [facility] ACCOUNT BILL LDL Calculated 135(H) 0 - 99 mg/dL [facility] ACCOUNT BILL Comment NOT NEEDED [facility] ACCOUNT BILL Comment:Ancillary determined the test is not needed Cholesterol/HDL Ratio 4.2 0.0 - 4.4 ratio units [facility] ACCOUNT BILL Comment: T. Chol/HDL Ratio Men Women 1/2 Avg.Risk 3.4 3.3 Avg.Risk 5.0 4.4 2X Avg.Risk 9.6 7.1 3X Avg.Risk 23.4 11.0 FASTING Blood BLOOD SPECIMEN / Unknown 10/30/2017 10:14 AM BOOTH USHER 10/30/2017 Narrative Resulting Agency Comment [facility] [place] [address] [facility] [id number] Buck Carreno MD LAB - CHEMISTRY ORD ERABLES [facility] ACCOUNT BILL [address] [place] [address] * VITAMIN D 25-HYDROXY (10/30/2017 10:14 AM BOOTH USHER) Only the most recent of3 resultswithin the time period is included. Vitamin D, 25 Hydroxy 58.4 30.0 - 100.0 ng/mL [facility] ACCOUNT BILL Comment: Vitamin D deficiency has been defined by the [place] [employer] and an Endocrine Society practice guideline as a level of serum 25-OH vitamin D less than 20 ng/mL (1,2). The Endocrine Society went on to further define vitamin D insufficiency as a level between 21 and 29 ng/mL (2). 1. IOM ([place] [employer]). 2010. Dietary reference intakes for calcium and D. [place]: The National Academies Press. 2. Vicky MF, Starr GOLDSTEIN, Kareem WATKINS, et al. Evaluation, treatment, and prevention of vitamin D deficiency: an Endocrine Society clinical practice guideline. JCEM. 2010; 96(7):1911-30. FASTING Blood BLOOD SPECIMEN / Unknown 10/30/2017 10:14 AM BOOTH USHER 10/30/2017 Narrative Resulting Agency Comment [facility] [place] [address] [facility] [id number] Buck Carreno MD LAB - CHEMISTRY ORD ERABLES [facility] ACCOUNT BILL [address] [place] [address] * CBC W AUTO DIFFERENTIAL (10/30/2017 10:14 AM BOOTH USHER) Only the most recent of7 resultswithin the time period is included. WBC 6.9 3.4 - 10.8 x10E3/uL [facility] ACCOUNT BILL RBC 4.26 3.77 - 5.28 x10E6/uL [facility] ACCOUNT BILL Hemoglobin 12.5 11.1 - 15.9 g/dL [facility] ACCOUNT BILL Hematocrit 39.7 34.0 - 46.6 % [facility] ACCOUNT BILL MCV 93 79 - 97 fL [facility] ACCOUNT BILL MCH 29.3 26.6 - 33.0 pg [facility] ACCOUNT BILL MCHC 31.5 31.5 - 35.7 g/dL [facility] ACCOUNT BILL RDW 13.4 12.3 - 15.4 % [facility] ACCOUNT BILL Platelet Count 363 150 - 379 x10E3/uL [facility] ACCOUNT BILL Granulocytes % 67 Not Estab. % [facility] ACCOUNT BILL Lymphocytes % 25 Not Estab. % [facility] ACCOUNT BILL Monocytes % 6 Not Estab. % [facility] ACCOUNT BILL Eosinophils % 2 Not Estab. % [facility] ACCOUNT BILL Basophils % 0 Not Estab. % [facility] ACCOUNT BILL Immature Cells NOT NEEDED [facility] ACCOUNT BILL Comment:Ancillary determined the test is not needed Granulocytes Absolute 4.6 1.4 - 7.0 x10E3/uL [facility] ACCOUNT BILL Lymphocytes Absolute 1.7 0.7 - 3.1 x10E3/uL [facility] ACCOUNT BILL Monocytes Absolute 0.4 0.1 - 0.9 x10E3/uL [facility] ACCOUNT BILL Eosinophils Absolute 0.1 0.0 - 0.4 x10E3/uL [facility] ACCOUNT BILL Basophils Absolute 0.0 0.0 - 0.2 x10E3/uL [facility] ACCOUNT BILL Immature Granulocytes 0 Not Estab. % [facility] ACCOUNT BILL Immature Granulocytes Absolute 0.0 0.0 - 0.1 x10E3/uL [facility] ACCOUNT BILL Comment:FASTING nRBC NOT NEEDED [facility] ACCOUNT BILL Comment:Ancillary determined the test is not needed Comment Hematology NOT NEEDED [facility] ACCOUNT BILL Comment: FASTING Ancillary determined the test is not needed Blood BLOOD SPECIMEN / Unknown 10/30/2017 10:14 AM BOOTH USHER 10/30/2017 Narrative Resulting Agency Comment [facility] [place] [id number] [facility] [id number] Buck Carreno MD LAB - HEMATOLOGY OR DERABLES [facility] ACCOUNT BILL [address] [place] [address] * COMPREHENSIVE METABOLIC PANEL (10/30/2017 10:14 AM BOOTH USHER) Only the most recent of5 resultswithin the time period is included. Glucose 86 65 - 99 mg/dL [facility] ACCOUNT BILL BUN 13 6 - 24 mg/dL [facility] ACCOUNT BILL Creatinine 0.71 0.57 - 1.00 mg/dL [facility] ACCOUNT BILL eGFR by MDRD 100 >59 mL/min/1.7 3 [facility] ACCOUNT BILL eGFR by MDRD 116 >59 mL/min/1.7 3 [facility] ACCOUNT BILL BUN/Creatinine Ratio 18 9 - 23 [facility] ACCOUNT BILL Sodium 142 134 - 144 mmol/L [facility] ACCOUNT BILL Potassium 4.7 3.5 - 5.2 mmol/L [facility] ACCOUNT BILL Chloride 102 96 - 106 mmol/L [facility] ACCOUNT BILL CO2 24 18 - 29 mmol/L [facility] ACCOUNT BILL Calcium 9.4 8.7 - 10.2 mg/dL [facility] ACCOUNT BILL Protein Total 7.2 6.0 - 8.5 g/dL [facility] ACCOUNT BILL Albumin 4.2 3.5 - 5.5 g/dL [facility] ACCOUNT BILL Globulin Total 3.0 1.5 - 4.5 g/dL [facility] ACCOUNT BILL Albumin/Globulin Ratio 1.4 1.2 - 2.2 [facility] ACCOUNT BILL Bilirubin Total 0.3 0.0 - 1.2 mg/dL [facility] ACCOUNT BILL Alkaline Phosphatase 51 39 - 117 IU/L [facility] ACCOUNT BILL AST 21 0 - 40 IU/L [facility] ACCOUNT BILL ALT 18 0 - 32 IU/L [facility] ACCOUNT BILL Comment:FASTING Blood BLOOD SPECIMEN / Unknown 10/30/2017 10:14 AM BOOTH USHER 10/30/2017 Narrative Resulting Agency Comment [facility] [address] [facility] [phone] Buck Carreno MD LAB - CHEMISTRY ORD ERABLES Performing Organization Address City/[facility] Co de Phone Number [facility] ACCOUNT BILL [address] [place] [address] * TSH (10/30/2017 10:14 AM BOOTH USHER) Only the most recent of3 resultswithin the time period is included. TSH 1.100 0.450 - 4.500 uIU/mL [facility] ACCOUNT BILL Comment:FASTING Blood BLOOD SPECIMEN / Unknown 10/30/2017 10:14 AM BOOTH USHER 10/30/2017 Narrative Resulting Agency Comment [facility] [address] [facility] [phone] Buck Carreno MD LAB - CHEMISTRY ORD ERABLES Performing Organization Address City/[facility]/ZIP Co de Phone Number [facility] ACCOUNT BILL [address] [place] [address] * MAMMO SCREENING BILATERAL (12/18/2016) Anatomical Region Laterality Modality Breast Mammography Scanned Document MAMMO ORDERABLES * HEMOGLOBIN A1C (06/21/2013 9:05 AM CDT) Hemoglobin A1c 5.0 4.2 - 6.3 % 06/21/2013 10:27 AM CDT [facility] Estimated Average Glucose 97 mg/dL 06/21/2013 10:27 AM CDT [facility] Whole Blood BLOOD SPECIMEN / Unknown Lab Venipuncture / Unknown 06/21/2013 9:05 AM CDT 06/21/2013 9:31 AM CDT Provider Unknown LAB - CHEMISTRY ROWENA JHA [facility] Organization Address City/State/ZIP Co de Phone Number [facility] [address] [place] [address] * BASIC METABOLIC PANEL (CALCIUM TOTAL) (06/21/2013 9:05 AM CDT) Glucose 90 74 - 106 mg/dL 06/21/2013 10:01 AM T [facility] Sodium 141 136 - 145 mmol/L 06/21/2013 10:01 AM [facility] Potassium 4.3 3.5 - 5.1 mmol/L 06/21/2013 10:01 AM [facility] Chloride 106 98 - 107 mmol/L 06/21/2013 10:01 AM [facility] CO2 27 22 - 31 mmol/L 06/21/2013 10:01 AM T [facility] Calcium 8.5 8.5 - 10.1 mg/dL 06/21/2013 10:01 AM [facility] Anion Gap 8 5 - 15 mmol/L 06/21/2013 10:01 AM T [facility] BUN 10 7 - 21 mg/dL 06/21/2013 10:01 AM [facility] Creatinine 0.60 0.50 - 1.30 mg/dL 06/21/2013 10:01 AM [facility] eGFR by MDRD >60 >60 ml/min/1.7 3m2 06/21/2013 10:01 AM T [facility] eGFR by MDRD >60 >60 ml/min/1.7 3m2 06/21/2013 10:01 AM T [facility] Blood BLOOD SPECIMEN / Unknown Lab Venipuncture / Unknown 06/21/2013 9:05 AM CDT 06/21/2013 9:31 AM CDT Provider Unknown LAB - CHEMISTRY ORDE ABHIJEET Performing Organization Address [facility]/ZIP Co de Phone Number [facility] [address] [place] [address] * LDL CHOLESTEROL (06/21/2013 9:05 AM CDT) LDL Direct 111 <130 mg/dL 06/21/2013 10:01 AM CDT [facility] Blood BLOOD SPECIMEN / Unknown Lab Venipuncture / Unknown 06/21/2013 9:05 AM CDT 06/21/2013 9:31 AM CDT Provider Unknown LAB - CHEMISTRY ORDE ABHIJEET Performing Organization Address [facility] Co de Phone Number [facility] [address] [place] [address] * LIPID PROFILE (06/21/2013 9:05 AM CDT) Only the most recent of5 resultswithin the time period is included. Cholesterol 179 <200 mg/dL 06/21/2013 10:01 AM CDT [facility] Triglycerides 84 <150 mg/dL 06/21/2013 10:01 AM CDT [facility] HDL Cholesterol 57 >40 mg/dL 3 10:01 AM CDT [facility] LDL Calculated 105 <130 mg/dL 06/21/2013 10:01 AM CDT [facility] VLDL Calculated 17 <=30 mg/dL 3 10:01 AM CDT [facility] Chol HDL Ratio 3.1 <4.5 06/21/2013 10:01 AM CDT [facility] Blood BLOOD SPECIMEN / Unknown Lab Venipuncture / Unknown 06/21/2013 9:05 AM CDT 06/21/2013 9:31 AM CDT Provider Unknown LAB - CHEMISTRY ORDE ABHIJEET Performing Organization Address [facility] Co de Phone Number [facility] [address] [place] [address] * CT CHEST PE (04/11/2013 8:18 PM CDT) Anatomical Region Laterality Modality Chest Computed Tomogra phy 04/11/2013 8:29 PM CDT Impressions 04/11/2013 8:29 PM CDT No pulmonary embolus. Lungs are clear. Narrative 04/11/2013 8:[address] Thorax With Contrast CT MIP reconstructions Clinical Indication: Shortness of breath Technique: The pulmonary embolus protocol was utilized. Axial CT images from the lung apices to the lung bases were obtained following Omnipaque 350 60 mL intravenous contrast administration. Coronal maximum intensity projection reconstructions were created on an independent workstation. Findings: Radiographs are available from April 11, 2013. Heart size is normal. No aortic aneurysm or dissection or pulmonary embolus is seen. Upper abdomen is unremarkable. Lungs are clear and no pneumothorax or pleural effusion is seen. The airway is patent. Procedure Note Ulises Brice MD - 04/11/2013 CT Thorax With Contrast CT MIP reconstructions Clinical Indication: Shortness of breath Technique: The pulmonary embolus protocol was utilized. Axial CT images from the lung apices to the lung bases were obtained following Omnipaque 350 60 mL intravenous contrast administration. Coronal maximum intensity projection reconstructions were created on an independent workstation. Findings: Radiographs are available from April 11, 2013. Heart size is normal. No aortic aneurysm or dissection or pulmonary embolus is seen. Upper abdomen is unremarkable. Lungs are clear and no pneumothorax or pleural effusion is seen. The airway is patent. IMPRESSION No pulmonary embolus. Lungs are clear. Edmar Trejo MD CT ORDERABLES * (ABNORMAL) URINALYSIS ROUTINE AUTO (04/11/2013 6:50 PM CDT) Color UA Yellow Straw, Yellow, Dark Yellow 04/11/2013 6:59 PM CDT [facility] Clarity UA Clear 04/11/2013 6:59 PM CDT [facility] Specific Speculator UA 1.021 1.005 - 1.030 04/11/2013 6:59 PM CDT [facility] pH UA 6.0 5.0 - 8.0 04/11/2013 6:59 PM CDT [facility] Protein UA Negative Negative 04/11/2013 6:59 PM CDT [facility] Blood UA Negative Negative 04/11/2013 6:59 PM CDT [facility] Leukocyte UA 1+(A) Negative 04/11/2013 6:59 PM CDT [facility] Nitrite UA Negative Negative 04/11/2013 6:59 PM CDT [facility] Glucose UA Negative Negative 04/11/2013 6:59 PM CDT [facility] Ketone UA Negative Negative 04/11/2013 6:59 PM CDT [facility] Bilirubin UA Negative Negative 04/11/2013 6:59 PM CDT [facility] Urobilinogen UA 0.2 0.1 - 1.0 EU/dL 04/11/2013 6:59 PM CDT [facility] WBC UA Auto 2-5 0-2, 2-5 #/hpf 04/11/2013 6:59 PM CDT [facility] RBC UA Auto 0-2 0-2, 2-5 #/hpf 04/11/2013 6:59 PM CDT [facility] Epithelial Cell UA Auto 5-10(A) 0-2, 2-5 #/hpf 04/11/2013 6:59 PM CDT [facility] Bacteria UA Auto None seen None seen 04/11/20 13 6:59 PM CDT [facility] Hyaline Casts UA Auto 0-2 0 - 2 #/lpf 04/11/2013 6:59 PM CDT [facility] Urine specimen (specimen) URINE SPECIMEN OBTAINED BY CLEAN CATCH PROCEDURE / Unknown 04/11/2013 6:50 PM CDT 04/11/2013 6:51 PM CDT Edmar Trejo MD LAB - URINALYSIS O RDERABLES [facility] [address] [place] [address] * XR CHEST PA AND LATERAL (04/11/2013 6:40 PM CDT) Anatomical Region Laterality Modality Chest Radiographic Krys ging 04/11/2013 7:05 PM CDT Impressions 04/11/2013 7:05 PM CDT No acute disease Narrative 04/11/2013 7:05 PM CDT Chest two views INDICATION: Chest pain FINDINGS: The heart size is normal and the lungs are clear and no pneumothorax or pleural effusion is seen. Procedure Note Ulises Birce MD - 04/11/2013 Chest two views INDICATION: Chest pain FINDINGS: The heart size is normal and the lungs are clear and no pneumothorax or pleural effusion is seen. IMPRESSION No acute disease Edmar Trejo MD DIAGNOSTIC IMAGING ORDERABLES * US ABD LIMITED (RUQ) (04/11/2013 6:26 PM CDT) Anatomical Region Laterality Modality Abdomen Ultrasound 04/11/2013 6:59 PM CDT Impressions 04/11/2013 6:59 PM CDT Unremarkable abdominal ultrasound. Narrative 04/11/2013 6:59 PM CDT Ultrasound Abdomen Limited Indication: Chest pain, right-sided pain Technique: Coleman scale and color images of the abdomen Findings: Pancreas is on partially imaged, the liver is within normal limits. Portal venous flow is hepatopedal and gallbladder and bile ducts and right kidney are normal. Procedure Note Ulises Brice MD - 04/11/2013 Ultrasound Abdomen Limited Indication: Chest pain, right-sided pain Technique: Coleman scale and color images of the abdomen Findings: Pancreas is on partially imaged, the liver is within normal limits. Portal venous flow is hepatopedal and gallbladder and bile ducts and right kidney are normal. IMPRESSION Unremarkable abdominal ultrasound. Edmar Trejo MD US ORDERABLES * HCG URINE QUALITATIVE - POINT OF CARE (IP) (04/11/2013 5:51 PM CDT) Only the most recent of2 resultswithin the time period is included. HCG Qual Urine Negative Negative [facility] POCT TESTING QC Verified yes Yes [facility] POC T TESTING Urine specimen (specimen) URINE / Unknown 04/11/2013 5:51 PM CDT Edmar Trejo MD LAB - POINT OF CAR E ORDERABLES [facility] POCT TESTING [address] [place] [address] * HCG URINE QUALITATIVE (04/11/2013 5:19 PM CDT) hCG Qualitative Urine Negative Negative 04/11/2013 5:32 PM CDT [facility] Urine specimen (specimen) URINE / Unknown 04/11/2013 5:19 PM CDT 04/11/2013 5:25 PM CDT Jesse FELICIANO LAB - URINALYSIS ORD ERABLES Performing Organization Address [facility] Co de Phone Number [facility] [address] [place] [address] * EKG 12-LEAD (04/11/2013 4:52 PM CDT) Ventricular Rate 66 BPM [facility] Atrial Rate 66 BPM [facility] P-R Interval 144 ms [facility] QRS Duration ms 88 ms [facility] Q-T Interval ms 426 ms [facility] QTC Calculation (Bezet) 446 ms [facility] MUSE Calculated P Lynden 77 degrees [facility] MUSE Calculated R Lynden 49 degrees [facility] MUSE Calculated T Lynden 40 degrees [facility] M[facility] Interpretation EKG Normal sinus rhythm Poor R-wave progression Abnormal ECG No previous ECGs available Confirmed by CLAY BYRD, LOLA ([id number]) on 04/12/2013 8:40:28 AM [facility] MUSE 04/11/2013 4:52 PM CDT 04/12/2013 8:40 AM CDT Narrative [facility] MUSE - 04/12/2013 8:41 AM CDT Procedure Note Document, Scanned - 04/12/2013 7:08 AM CDT Transcriptions Document, Scanned - 04/12/2013 8:41 AM CDT Edmar Trejo MD ECG ORDERABLES Performing Organization Address [facility] Co de Phone Number [facility] * VITAMIN B12 (01/05/2012 8:46 AM CDT) Vitamin B12 424 211 - 946 pg/mL [facility] ACCOUNT BILL Blood specimen (specimen) BLOOD SPECIMEN / Unknown 01/05/2012 8:46 AM CDT 01/05/2012 1:24 PM CDT Narrative Resulting Agency Comment [facility] [address] [phone] Nallely Bonds MD LAB - CHEMISTRY ORDE RABLES [facility] ACCOUNT BILL * NM HEPATOBILIARY FUNCTION SCAN (06/01/2011) Anatomical Region Laterality Modality Abdomen Other Provider Unknown NM ORDERABLES * LAB RESULTS ORDER (05/28/2011) Provider Unknown LAB - THERAPEUTIC DR UG MONITORING ORDERABLES * GROSS + MICRO EXAM (05/15/2011 1:30 PM CDT) Only the most recent of2 resultswithin the time period is included. Result CASE NUMBER [id number] Comment: ORDERING PHYSICIAN RAYSA CRUZ SPECIMEN TYPE Gastric Date 05/15/2011 Physician Nancy Gross Description The specimen is received in two Formalin containers labeled with the patient's name, Federica Canales. The first container is labeled gastric antrum, and consists of three yellow hernandez tissue fragments ranging in size from 0.1 to 0.2 cm, entirely submitted in cassette A. The second container is labeled cecum biopsy, and consists of two yellow hernandez tissue fragments measuring <0.1 to 0.2 cm, entirely submitted in cassette B. TF musa Microscopic Exam Sections show three small fragments of gastric mucosa with mild chronic inflammation. Acute inflammation is not seen. H. pylori bacterial organisms are not identified. Dysplasia or malignancy is not seen. MC/na Diagnosis I. Gastric antrum, biopsy -- Mild chronic inflammation MC/na Repairer Shoe Sticks na Pathologist Lisa Goode MD [place]. 05/18/2011 1215 <1> CPT code 38904 MISCELLANEOUS SAMPLES / Unknown 05/15/2011 1:30 PM CDT 05/15/2011 3:58 PM CDT Historical Provider LAB - PATHOLOGY/C YTOLOGY ORDERABLES * HELICOBACTER PYLORI UREASE (05/15/2011 1:30 PM CDT) Helicobacter pylori Urease Initial Negative Negative [facility] Helicobacter pylori Urease Final Negative Negative [facility] Miscellaneous samples (specimen) GASTRIC ANTRAL BIOPSY SPECIMEN / Unknown 05/15/2011 1:30 PM CDT 05/15/2011 3:58 PM CDT Raysa Cruz MD LAB - MICROBIOLOG Y ORDERABLES [facility] [address] [place] [id number] * ENDOSCOPY ORDER (05/15/2011) 05/15/2011 Narrative Procedure Note Raysa Cruz MD - 05/15/2011 1:17 PM CDT [facility] [address] [place] [id number] Endoscopy Note PATIENT NAME: FEDERICA CANALES LMR#: [id number] AGE: 40ACCT#: [id number] DATE OF ADMISSION: 05/15/2011DOB: 1970 DATE OF PROCEDURE: 05/15/2011ROOM#: PROCEDURE: Gastroscopy. LENS GRINDER APPRENTICE: Raysa Cruz M.D. PREOPERATIVE DIAGNOSIS: Epigastric abdominal pain. POSTOPERATIVE DIAGNOSIS: Mild antral gastritis. Biopsies and ISIDRO test obtained. COMPLICATIONS: None. CONSENT: The procedure was discussed with the patient including the risks involvedof drug reaction, infection, bleeding, perforation. She understood andagreed to proceed. MALLAMPATI AIRWAY CLASSIFICATION: Class I. INSTRUMENT: Olympus video gastroscope GIF H-180. PREOPERATIVE MEDICATION: Per anesthesia. HISTORY AND INDICATION: A 40-year-old white female who has had 2 to 3 episodes of epigastricabdominal pain with some nausea but no vomiting. She has occasionalheartburn for which she takes some Tums. No other medications. She hadan ultrasound of he gallbladder. This was negative. She was referredfor endoscopy for the evaluation of the above. Refer to the H and P for further details. DESCRIPTION OF PROCEDURE: The patient brought to endoscopy suite and placed in the left lateraldecubitus position. Bite block was inserted. The Olympus video gastroscope was introduced into the oropharynx underdirect visualization. The posterior pharynx revealed no abnormalities.The esophagus was intubated without difficulty. The upper, mid, anddistal esophagus appeared normal. The squamocolumnar junction wasapproximately 37 cm from the incisors and this appeared normal. Did notsee any air erythema, erosions, or ulcers. No stricture. No Schatzki'sring. The stomach was entered and the body of stomach appeared normal.The antrum revealed some linear erythematous streaks, patchy erythema,but no erosions or ulcers. Pyloric channel, duodenal bulb, and secondportion of the duodenum were normal. The endoscope was withdrawn into the stomach and retroflexed revealingnormal cardia and fundus. The endoscope then straightened. Biopsies [id number] in the antrum, 2 biopsies for ISIDRO-test. The endoscope waswithdrawn. The patient tolerated the procedure well. RECOMMENDATIONS: Await tissue results. cc:Eugenio Kang M.D. NAME: FEDERICA CANALES DICTATOR:RAYSA CRUZ M.D. DICTATED FOR: [facility]/[id number] JOB ID: [id number] Endoscopy Note Raysa Cruz MD GI PROCEDURE ORDKarlie JHA * IRON + TIBC PANEL (06/16/2010 4:32 PM CDT) TIBC 379 250 - 450 ug/dL [facility] ACCOUNT BILL UIBC 247 150 - 375 ug/dL [facility] ACCOUNT BILL Iron 132 35 - 155 ug/dL [facility] ACCOUNT BILL Iron Saturation 35 15 - 55 % [facility] ACCOUNT BILL BLOOD SPECIMEN / Unknown 06/16/2010 4:32 PM CDT 06/16/2010 9:24 PM CDT Narrative Resulting Agency Comment [facility] [address] [phone] Eugenio Kang MD LAB - CHEMISTRY ROWENA JHA [facility] ACCOUNT BILL * VITAMIN B12 FOLATE PANEL (06/16/2010 4:32 PM CDT) Vitamin B12 359 211 - 946 pg/mL [facility] ACCOUNT BILL Folate >19.9 >3.0 ng/mL [facility] ACCOUNT BILL Comment: Indeterminate: 2.2 - 3.0 Deficient: <2.2 BLOOD SPECIMEN / Unknown 06/16/2010 4:32 PM CDT 06/16/2010 9:24 PM CDT Narrative Resulting Agency Comment [facility] [address] [facility] [phone] Eugenio Kang MD LAB - CHEMISTRY ORDKarlie JHA Performing Organization Address [facility] de Phone Number [facility] ACCOUNT BILL * (ABNORMAL) PROLACTIN (12/19/2009 2:16 PM BOOTH USHER) Only the most recent of2 resultswithin the time period is included. Prolactin 23.4(H) 4.8 - 23.3 ng/mL [facility] ACCOUNT BILL BLOOD SPECIMEN / Unknown 12/19/2009 2:16 PM BOOTH USHER 12/19/2009 9:09 PM BOOTH USHER Narrative Resulting Agency Comment [facility] [phone] Eugenio Kang MD LAB - CHEMISTRY ORDKarlie JHA Performing Organization Address [facility] de Phone Number [facility] ACCOUNT BILL * FSH + LH PANEL (12/19/2009 2:16 PM BOOTH USHER) Only the most recent of2 resultswithin the time period is included. LH 5.8 mIU/mL [facility] ACCOUNT BILL Comment: Follicular phase 2.4 - 12.6 Ovulation phase 14.0 - 95.6 Luteal phase 1.0 - 11.4 Postmenopausal 7.7 - 58.5 FSH 6.4 mIU/mL [facility] ACCOUNT BILL Comment: Follicular phase 3.5 - 12.5 Ovulation phase 4.7 - 21.5 Luteal phase 1.7 - 7.7 Postmenopausal 25.8 - 134.8 BLOOD SPECIMEN / Unknown 12/19/2009 2:16 PM BOOTH USHER 12/19/2009 9:09 PM BOOTH USHER Narrative Resulting Agency Comment [facility] [address] [facility] [phone] Eugenio Kang MD LAB - CHEMISTRY ORDKarlie JHA Performing Organization Address [facility] de Phone Number [facility] ACCOUNT BILL * THYROID PANEL W TSH (08/27/2008 3:40 PM BOOTH USHER) TSH 1.508 0.450 - 4.500 uIU/mL [facility] INSURANCE BILL T4 Total 7.3 4.5 - 12.0 ug/dL [facility] INSURANCE BILL T3 Uptake 25 24 - 39 % [facility] INSURANCE BILL Free Thyroxine Index 1.8 1.2 - 4.9 [facility] INSURANCE BILL 08/27/2008 3:40 PM BOOTH USHER 08/27/2008 9:19 PM BOOTH USHER Narrative Resulting Agency Comment [facility] [phone] Eugenio Kang MD LAB - CHEMISTRY ROWENA JHA Performing Organization Address [facility] de Phone Number [facility] INSURANCE BILL * MARBELLA BLOOD SCREEN (08/27/2008 3:40 PM BOOTH USHER) MARBELLA Direct 37 0 - 99 AU/mL [facility] INSURANCE BILL Comment: Negative <100 Equivocal 100 - 120 Positive >120 08/27/2008 3:40 PM BOOTH USHER 08/27/2008 9:19 PM BOOTH USHER Narrative Resulting Agency Comment [facility] [phone] Eugenio Kang MD LAB - CHEMISTRY ROWENA JHA Performing Organization Address [facility] de Phone Number [facility] INSURANCE BILL * SED RATE WESTERGREN AUTO (08/27/2008 3:40 PM BOOTH USHER) Erythrocyte Sedimentation Rate Westergren 8 0 - 20 mm/hr [facility] INSURANCE BILL 08/27/2008 3:40 PM BOOTH USHER 08/27/2008 9:19 PM BOOTH USHER Narrative Resulting Agency Comment [facility] [phone] Eugenio Kang MD LAB - HEMATOLOGY SOFI RON Performing Organization Address [facility] Co de Phone Number [facility] INSURANCE BILL Care Teams Health Promotion Officer Relationship Specialty Start Date End Date Alfredo Diamond MD [address] [place] [phone] PCP - General Internal Medicine 07/18/21
--- OUTSIDE RECORDS SUMMARY | 2024-12-05 07:35 | XMS_ITS | Encounter Summary ---
Author Organization [facility] Address [address] [place] [address] Care Team Providers Care Staff Analyst Name Role Phone Unavailable Primary Care Provider Unavailabl e Encounter Details Date Type Department Care Team (Late st Contact Info) Description 05/24/2000 Outpatient Historical [facility] [address] [facility] [address] [address] Juan Hector MD [address] [place] [id number] Social History Tobacco Use Types Packs/Day Years Used Date Smoking Tobacco: Never Assessed Comments Unknown Sex and Gender Information Value Date Recorded Sex Assigned at Not on file 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
--- OUTSIDE RECORDS SUMMARY | 2024-12-05 07:35 | XMS_ITS | Clinical Summary ---
Author Organization [facility] Address [address] [place] [address] Care Team Providers Care Director Patient Accounting Name Role Phone Alfredo Diamond MD Primary Care Provider [phone] Source Comments [facility],non-owned Affiliates and Associated Physician Practices is amultiple site organization consisting of ambulatory clinics and hospital sitesin [place]. This disclosure is being madepursuant to the Care Everywhere program and may not contain all information available regarding this patient. Last updated 18.[facility] Allergies No known active allergies Medications * Be aware that medications may not be up to date on this document. Alwaysverify current medications with the patient. Medication Sig Dispensed Refills Start Date End Date Status tretinoin (RETIN-A) 0.1 % cream Apply to affected area at bedtime. 20 g 0 01/01/2012 Active Calcium Carbonate Antacid (TUMS PO) Take 1 Tab by mouth as needed. Active Multiple Vitamin (MULTI-VITAMIN DAILY PO) Take 1 Tab by mouth once daily. unsure of dose. Active calcium carbonate (Caltrate) 600 MG tablet Take 1 (one) tablet by mouth 2 times daily Active vitamin D, ergocalciferol, (DRISDOL) 41314 UNITS capsule Take 1 capsule by mouth every 7 days 13 capsule 1 10/12/2018 Active biotin 5 MG tablet Take 1 (one) tablet by mouth once daily Active norethindrone-ethiny l estradiol (Femhrt 10/29) 1-5 MG-MCG tabletIndications:Me nopausal symptoms Take 1 (one) tablet by mouth once daily 84 tablet 3 09/04/2024 Active Active Problems Problem Noted Date Diagnosed Date Musculoskeletal pain 04/11/2013 Vitamin D deficiency 02/08/2012 Weight gain 01/10/2012 Cold hands 01/10/2012 Fatigue 01/10/2012 Hair thinning 01/10/2012 Screening for cervical cancer 01/10/2012 Overview (01/10/2012): Pap/pelvic done by TRANSFER CONTROLLER 07/2011 told ok GERD (gastroesophageal reflux disease) Resolved Problems Problem Noted Date Diagnosed Date Resolved Date Elevated BP 01/10/2012 02/08/2012 Generalized headaches 2011 Encounters Date Type Department Care Team Description 11/03/2024 Orders Only [facility] - PARAMEDIC SUPERVISOR [address] [place] [address], [address] [address] Buck Carreno MD Pelvic pain in female 10/27/2024 Telephone [facility] PARAMEDIC SUPERVISOR[address], [address] [address] [facility] (Pt is scheduled for 11/03 @ 11:30 @ [facility] for a CT scan. Per Estabelan V procedure code [id number] requires an authorization. Auth # is [id number]) 10/16/2024 10:20 AM STORE KEEPER Office Visit [facility] PARAMEDIC SUPERVISOR [address] [place] [address], [address] [place] [phone] Buck Carreno MD Pelvic pain in female (Primary Dx) 10/16/2024 9:30 AM STORE KEEPER OBGYN RADIOLOGY [facility] PARAMEDIC SUPERVISOR[address], [address] [place] [phone] Pelvic pain in female 10/16/2024 Travel 09/04/2024 9:20 AM STORE KEEPER Office Visit [facility] - PARAMEDIC SUPERVISOR [address] [place] [address], [address] [place] [phone] Buck Carreno MD Well woman exam (Primary Dx); Colon cancer screening; Menopausal symptoms; Lower abdominal pain 09/04/2024 Travel from Last 3 Months Family History Medical History Relation Name Comments CAD (Coronary Artery Disease) Brother 2 CAD (Coronary Artery Disease) Father Cancer Father bladder in 2010 Stroke Father 04/26/2016 CAD (Coronary Artery Disease) Mother cabg Breast Cancer after age 50 or unknown Paternal Grandmo ther Cancer - Ovarian Sister 1 CAD (Coronary Artery Disease) Sister 2 Essie ptca Relation Name Status Comments Brother 1 Alive Brother 2 Father Mother Alive Paternal Grandmother Sister 1 Alive Sister 2 Essie Social History Tobacco Use Types Packs/Day Years [...] Comments Blood Pressure 126/82 10/16/2024 10:19 AM STORE KEEPER Pulse 66 04/11/2013 9:00 PM CDT Temperature 36.8 C (98.2 F) 04/11/2013 4:42 PM CDT Respiratory Rate 20 04/11/2013 9:00 PM CDT Oxygen Saturation 96% 04/11/2013 9:00 PM CDT Inhaled Oxygen Concentration - - Weight 81.6 kg (180 lb) 09/04/2024 9:06 AM STORE KEEPER Height 164 cm (5' 4.57 ) 10/16/2024 10:19 AM STORE KEEPER Body Mass Index 30.36 09/04/2024 9:06 AM STORE KEEPER Plan of Treatment Upcoming Encounters Date Type Department Care Team (Late st Contact Info) Description 12/11/2024 2:30 PM STORE KEEPER OBGYN RADIOLOGY [facility] - PARAMEDIC SUPERVISOR [address] [place] [address], [address] [place] [phone] 12/11/2024 3:00 PM STORE KEEPER Office Visit [facility] - PARAMEDIC SUPERVISOR [address] [place] [address], [address] [place] [phone] Buck Carreno MD [address] [place] [phone] Health Maintenance Due Date Last Done Comments COLOGUARD (AGES 45-75) - COLON CA SCREENING 1968 COLON MONITORING 1968 COLONOSCOPY - COLON CA SCREENING 1968 CT COLONOGRAPHY - COLON CA SCREENING 1968 Colorectal Cancer Screening 1968 FIT - COLON CA SCREENING 1968 FLEX SIG - COLON CA SCREENING 1968 HIV SCREENING 1983 HEPATITIS C SCREENING 08/09/1986 DTAP/TDAP/TD VACCINES (1 - Tdap) 1987 HEPATITIS B VACCINE (1 of 3 - 19+ 3-dose series) 1987 PNEUMOCOCCAL VACCINE 50+ (1 of 1 - PCV) 2018 ZOSTER VACCINE (1 of 2) 2018 SCREENING FOR DIABETES 10/30/2020 8, 06/21/2013, 06/21/2013, Additional history exists LIPID TESTING 10/30/2022 10/30/2017, 05/26, 06/21/2013, Additional history exists COVID-19 VACCINE ( season) 2024 02/25/2021, 02/01/2021 INFLUENZA VACCINE (#1) 2024 08/04/2018 DEPRESSION SCREENING 10/25/2024 08/23/2023, 07/24/20 22 MAMMOGRAM 05/12/2025 05/12/2024, 04/24 (Done Outside Per Report), 03/17/2022, Additional history exists PAP with HPV 09/04/2029 09/04/2024, 07/27, 07/24/2022, Additional history exists HIB VACCINE Aged Out No longer eligi ble based on patient's age to complete this topic HPV VACCINE Aged Out No longer eligi ble based on patient's age to complete this topic MENINGOCOCCAL (Group B) VACCINE Aged Out No longer eligible based on patient's age to complete this topic MENINGOCOCCAL VACCINE Aged Out No leny earle eligible based on patient's age to complete this topic PNEUMOCOCCAL VACCINE Aged Out No long er eligible based on patient's age to complete this topic Procedures Procedure Name Priority Date/Time Associated Diagnosis Comments CT ABDOMEN PELVIS W CONTRAST Routine 11/03/2024 Pelvic pain in female NON-OB PELVIC SONOGRAM Routine 10:33 AM STORE KEEPER Pelvic pain in female PAP IG LB+HPV APTIMA Routine 09/04/2024 10:09 AM STORE KEEPER Well woman exam OCCULT BLOOD FECES 1-3 SCREEN POINT OF CARE (AMB) Routine 09/04/2024 9:36 AM STORE KEEPER Colon cancer screening MAMMOGRAM 05/12/2024 COMPREHENSIVE METABOLIC PANEL Routine 10/30/2017 10:14 AM STORE KEEPER Well woman exam LIPID PROFILE W TCHOL/HDL Routine 10/30/2017 10:14 AM STORE KEEPER Well woman exam from Last 3 Months or Most Recently Relevant to Health Maintenance Results * CT ABDOMEN AND PELVIS WITH IV CONTRAST (11/03/2024) Anatomical Region Laterality Modality Abdomen, Pelvis Other 11/03/[address] ORDERABLES * NON-OB PELVIC SONOGRAM (10/16/2024 10:33 AM STORE KEEPER) Linked Results Indication ======== Follow-up on pelvic [...] fluid in the pelvis. Coding ====== Procedures [id number]: US Transvaginal Non OB [facility] PACS Anatomical Region Laterality Modality Other 10/16/2024 10:3 3 AM STORE KEEPER Buck Carreno MD [facility] ORDERABLES * PAP IG LB+HPV APTIMA (09/04/2024 10:09 AM STORE KEEPER) Diagnosis Comment [facility] INSURANCE BILL Comment: NEGATIVE FOR INTRAEPITHELIAL LESION OR MALIGNANCY. CELLULAR CHANGES ASSOCIATED WITH ATROPHY ARE PRESENT. Specimen Adequacy Comment [facility] INSURANCE BILL Comment: Satisfactory for evaluation. Endocervical component may not be distinguished in cases of atrophy. Clinician Provided ICD10 Comment [facility] INSURANCE BILL Comment:Z01.419 Performed by Comment [facility] INSURANCE BILL Comment:Diamond López, Cytot echnologist (ASCP) Comment . [facility] INSURANCE BILL Note Comment [facility] INSURANCE BILL Comment: The Pap smear is a screening test designed to aid in the detection of premalignant and malignant conditions of the uterine cervix. It is not a diagnostic procedure and should not be used as the sole means of detecting cervical cancer. Both false-positive and false-negative reports do occur. [facility] CPT Code Automation Comment [facility] INSURANCE BILL Comment: This liquid based ThinPrep(R) pap test was screened with the use of an image guided system. Human papillomavirus Aptima Negative Negative [facility] INSURANCE BILL Comment: This nucleic acid amplification test detects fourteen high-risk HPV types (16,18,31,33,35,39,45,51,52,56,58,59,66,68) without differentiation. Pathology/Cytolog y PART OF UTERINE CERVIX / Unknown 09/04/2024 10:09 AM STORE KEEPER 09/04/2024 Comment:Cervix Release to pa talisha Narrative [facility] INSURANCE BILL - 09/11/2024 1:08 PM STORE KEEPER Performed at: 01 - [address] [id number] Dairy Feed Worker: Leeann Mcclain MD, Phone: [phone] Performed at: 02 - [facility] [id number] Dairy Feed Worker: Leeann Mcclain MD, Phone: [phone] Specimen Comment: [id number] Specimen Comment: No. of containers..01 ThinPrep Vial Buck Carreno MD LAB - PATHOLOGY/CYT OLOGY ORDERABLES [facility] INSURANCE BILL [address] [place] [address] * OCCULT BLOOD FECES 1-3 SCREEN POINT OF CARE (AMB) (09/04/2024 9:36 AM STORE KEEPER) Occult Blood 1 neg Negative [facility] Occult Blood 2 [facility] Occult Blood 3 [facility] Card Lot Number [facility] Card Exp Date [facility] Developer Lot Number [facility] Developer Expiration Date [facility] QC Negative [facility] QC Positive [facility] Stool STOOL SPECIMEN / Unknown 09/04/2024 9:36 AM STORE KEEPER Buck Carreno MD LAB - POINT OF CARE ORDERABLES [facility] [address], [facility] [address] [phone] * MAMMOGRAM (05/12/2024) Anatomical Region Laterality Modality Other 05/12/2024 Narrative 05/12/2024 Ordered by an unspecified provider. Scanned Document SCANNING ONLY * (ABNORMAL) LIPID PROFILE W TCHOL/HDL (10/30/2017 10:14 AM STORE KEEPER) Cholesterol 212(H) 100 - 199 mg/dL [facility] [...] BLOOD SPECIMEN / Unknown 10/30/2017 10:14 AM STORE KEEPER 10/30/2017 Narrative Resulting Agency Comment [facility] [address] [facility] [id number] Buck Carreno MD LAB - CHEMISTRY ORD ERABLES [facility] ACCOUNT BILL [address] [place] [address] * COMPREHENSIVE METABOLIC PANEL (10/30/2017 10:14 AM STORE KEEPER) Glucose 86 65 - 99 mg/dL [facility] [...] BLOOD SPECIMEN / Unknown 10/30/2017 10:14 AM STORE KEEPER 10/30/2017 Narrative Resulting Agency Comment [facility] [address] [address] [id number] Buck Carreno MD LAB - CHEMISTRY ORD ERABLES [facility] ACCOUNT BILL [address] [place] [address] from Last 3 Months or Most Recently Relevant to Health Maintenance Care Teams Director Patient Accounting Relationship Specialty Start Date End Date Alfredo Diamond MD [address] [place] [phone] PCP - General Internal Medicine 07/18/21
--- OUTSIDE RECORDS SUMMARY | 2024-12-05 07:35 | XMS_ITS | Referral Summary ---
Author Organization [facility] Address [address] [place] [address] Care Team Providers Care Fish Egg Packer Name Role Phone Alfredo Diamond MD Primary Care Provider [phone] Source Comments [facility],non-[facility] Affiliates and Associated Physician Practices is amultiple site organization consisting of ambulatory clinics and hospital sitesin [place], [place], [place] and [place]. This disclosure is being madepursuant to the Care Everywhere program and may not contain all information available regarding this patient. Last updated 18.[facility] Encounters Date Type Department Care Team Description 11/03/2024 Orders Only [facility] - INSPECTOR WIRE ROPE [address] [place] [address], [address] [address] Buck Carreno MD Pelvic pain in female 10/27/2024 Telephone [facility] - INSPECTOR WIRE ROPE [address] [place] [address], [address] [place] [phone] [facility] (Pt is scheduled for 11/03 @ 11:30 @ [facility] for a CT scan. Per Adrian Newton procedure code [id number] requires an authorization. Auth # is [id number]) 10/16/2024 Travel 10/16/2024 10:20 AM COFFEE MAKER SERVICER Office Visit [facility] - INSPECTOR WIRE ROPE [address] [place] [address], [address] [place] [phone] Buck Carreno MD Pelvic pain in female (Primary Dx) 10/16/2024 9:30 AM COFFEE MAKER SERVICER OBGYN RADIOLOGY [facility] - INSPECTOR WIRE ROPE [address] [place] [address], [address] [place] [address] Pelvic pain in female 09/04/2024 Travel 09/04/2024 9:20 AM COFFEE MAKER SERVICER Office Visit [facility] - INSPECTOR WIRE ROPE [address] [place] [address], [address] [place] [address] Buck Carreno MD Well woman exam (Primary Dx); Colon cancer screening; Menopausal symptoms; Lower abdominal pain from Last 3 Months Allergies No known active allergies Medications * [...] times daily Active vitamin D, ergocalciferol, (DRISDOL) 64590 UNITS capsule Take 1 capsule by mouth [...] cancer 01/10/2012 Overview (01/10/2012): Pap/pelvic done by ANSWERER 07/2011 told ok GERD (gastroesophageal reflux disease) [...] Comments Blood Pressure 126/82 10/16/2024 10:19 AM COFFEE MAKER SERVICER Pulse 66 04/11/2013 9:00 PM CDT Temperature 36.8 C (98.2 F) 04/11/2013 4:42 PM CDT Respiratory Rate 20 04/11/2013 9:00 PM CDT Oxygen Saturation 96% 04/11/2013 9:00 PM CDT Inhaled Oxygen Concentration - - Weight 81.6 kg (180 lb) 09/04/2024 9:06 AM COFFEE MAKER SERVICER Height 164 cm (5' 4.57 ) 10/16/2024 10:19 AM COFFEE MAKER SERVICER Body Mass Index 30.36 09/04/2024 9:06 AM COFFEE MAKER SERVICER Plan of Treatment Upcoming Encounters Date Type Department Care Team (Late st Contact Info) Description 12/11/2024 2:30 PM COFFEE MAKER SERVICER OBGYN RADIOLOGY [facility] - INSPECTOR WIRE ROPE [address] [place] [phone] 12/11/2024 3:00 PM COFFEE MAKER SERVICER Office Visit [facility] - INSPECTOR WIRE ROPE [address] [place] [phone] Buck Carreno MD [address] [place] [phone] Procedures Procedure Name Priority Date/Time Associated Diagnosis Comments CT ABDOMEN PELVIS W CONTRAST Routine 11/03/2024 Pelvic pain in female NON-OB PELVIC SONOGRAM Routine 10:33 AM COFFEE MAKER SERVICER Pelvic pain in female PAP IG LB+HPV APTIMA Routine 09/04/2024 10:09 AM COFFEE MAKER SERVICER Well woman exam OCCULT BLOOD FECES 1-3 SCREEN POINT OF CARE (AMB) Routine 09/04/2024 9:36 AM COFFEE MAKER SERVICER Colon cancer screening MAMMOGRAM 05/12/2024 COMPREHENSIVE METABOLIC PANEL Routine 10/30/2017 10:14 AM COFFEE MAKER SERVICER Well woman exam LIPID PROFILE W TCHOL/HDL Routine 10/30/2017 10:14 AM COFFEE MAKER SERVICER Well woman exam from Last 3 Months or Most Recently Relevant to Health Maintenance Results * CT ABDOMEN AND PELVIS WITH IV CONTRAST (11/03/2024) Anatomical Region Laterality Modality Abdomen, Pelvis Other 11/03/[address] ORDERABLES * NON-OB PELVIC SONOGRAM (10/16/2024 10:33 AM [facility]) Linked Results Indication ======== Follow-up on pelvic [...] fluid in the pelvis. Coding ====== Procedures [id number]: US Trans[facility]inal Non [facility] PACS Anatomical Region Laterality Modality Other 10/16/2024 10:3 3 AM COFFEE MAKER SERVICER Buck Carreno MD [facility] ORDERABLES * PAP IG LB+HPV APTIMA (09/04/2024 10:09 AM COFFEE MAKER SERVICER) Diagnosis Comment [facility] INSURANCE BILL Comment: NEGATIVE FOR INTRAEPITHELIAL LESION OR MALIGNANCY. CELLULAR CHANGES ASSOCIATED WITH ATROPHY ARE PRESENT. Specimen Adequacy Comment [facility] INSURANCE BILL Comment: Satisfactory for evaluation. Endocervical component may not be distinguished in cases of atrophy. Clinician Provided ICD10 Comment [facility] INSURANCE BILL Comment:Z01.419 Performed by Comment [facility] INSURANCE BILL Comment:Diamond López, Cytot echnologist (ASCP) Comment . [facility] INSURANCE BILL Note Comment [facility] INSURANCE BILL Comment: The Pap smear is a screening test designed to aid in the detection of premalignant and malignant conditions of the uterine cervix. It is not a diagnostic procedure and should not be used as the sole means of detecting cervical cancer. Both false-positive and false-negative reports do occur. [facility] CPT Code Automation Comment [facility] INSURANCE BILL Comment: This liquid based ThinPrep(R) pap test was screened with the use of an image guided system. Human papillomavirus Aptima Negative Negative [facility] INSURANCE BILL Comment: This nucleic acid amplification test detects fourteen high-risk HPV types (16,18,31,33,35,39,45,51,52,56,58,59,66,68) without differentiation. Pathology/Cytolog y PART OF UTERINE CERVIX / Unknown 09/04/2024 10:09 AM COFFEE MAKER SERVICER 09/04/2024 Comment:Cervix Release to pa t Narrative [facility] INSURANCE BILL - 09/11/2024 1:08 PM COFFEE MAKER SERVICER Performed at: 01 - [facility] [id number] Flower Stripper: Leeann Mcclain MD, Phone: [phone] Performed at: 02 - [facility] [id number] Flower Stripper: Leeann Mcclain MD, Phone: [phone] Specimen Comment: [id number] Specimen Comment: No. of containers..01 ThinPrep Vial Buck Carreno MD LAB - PATHOLOGY/CYT OLOGY ORDERABLES [facility] INSURANCE BILL [address] [place] [address] * OCCULT BLOOD FECES 1-3 SCREEN POINT OF CARE (AMB) (09/04/2024 9:36 AM COFFEE MAKER SERVICER) Occult Blood 1 neg Negative [facility] Occult Blood 2 [facility] Occult Blood 3 [facility] Card Lot Number [facility] Card Exp Date [facility] Developer Lot Number [facility] Developer Expiration Date [facility] QC Negative [facility] QC Positive [facility] Stool STOOL SPECIMEN / Unknown 09/04/2024 9:36 AM COFFEE MAKER SERVICER Buck Carreno MD LAB - POINT OF CARE ORDERABLES [facility] [address] , [facility] [address] [phone] * MAMMOGRAM (05/12/2024) Anatomical Region Laterality Modality Other 05/12/2024 Narrative 05/12/2024 Ordered by an unspecified provider. Scanned Document SCANNING ONLY * (ABNORMAL) LIPID PROFILE W TCHOL/HDL (10/30/2017 10:14 AM COFFEE MAKER SERVICER) Cholesterol 212(H) 100 - 199 mg/dL [facility] [...] BLOOD SPECIMEN / Unknown 10/30/2017 10:14 AM COFFEE MAKER SERVICER 10/30/2017 Narrative Resulting Agency Comment [facility] [address] [facility] [id number] Buck Carreno MD LAB - CHEMISTRY ORD ERABLES [facility] ACCOUNT BILL [address] [place] [address] * COMPREHENSIVE METABOLIC PANEL (10/30/2017 10:14 AM COFFEE MAKER SERVICER) Glucose 86 65 - 99 mg/dL [facility] [...] BLOOD SPECIMEN / Unknown 10/30/2017 10:14 AM COFFEE MAKER SERVICER 10/30/2017 Narrative Resulting Agency Comment [facility] [address] [facility] [id number] Buck Carreno MD LAB - CHEMISTRY ORD ERABLES [facility] ACCOUNT BILL [address] [place] [address] from Last 3 Months or Most Recently Relevant to Health Maintenance Care Teams Fish Egg Packer Relationship Specialty Start Date End Date Alfredo Diamond MD [address] [place] [phone] PCP - General Internal Medicine 07/18/21
--- OUTSIDE RECORDS SUMMARY | 2024-12-05 07:35 | XMS_ITS | Encounter Summary ---
Author Organization [facility] Address [address] [place] [address] Care Team Providers Care Felt Washing Machine Tender Name Role Phone Unavailable Primary Care Provider Unavailabl e Encounter Details Date Type Department Care Team (Late st Contact Info) Description 09/20/2000 Outpatient Historical [facility] Health [facility] [address] [facility] [address] [address] Juan Hector MD [address] [place] [address] Social History Tobacco Use Types Packs/Day Years Used Date Smoking Tobacco: Never Assessed Comments Unknown Sex and Gender Information Value Date Recorded Sex Assigned at Not on file Legal Sex Female 3:56 AM COMMUNICATIONS SENIOR ASSOCIATE Gender Identity Not on file Sexual Orientation Not on file documented as of this encounter Plan of Treatment Not on file documented as of this encounter Visit Diagnoses Not on filedocumented in this encounter
--- OUTSIDE RECORDS SUMMARY | 2024-12-05 07:35 | XMS_ITS | Encounter Summary ---
Author Organization [facility] Address [address] [place] [address] Care Team Providers Care Combination Welder Name Role Phone Unavailable Primary Care Provider Unavailabl e Encounter Details Date Type Department Care Team (Late st Contact Info) Description 07/07/1999 Outpatient Historical [facility] Health [facility] [address] [facility] [address] [address] Juan Hector MD [address] [place] [address] Social History Tobacco Use Types Packs/Day Years Used Date Smoking Tobacco: Never Assessed Comments Unknown Sex and Gender Information Value Date Recorded Sex Assigned at Not on file Legal Sex Female 3:56 AM NON CLINICAL ADVISOR Gender Identity Not on file Sexual Orientation Not on file documented as of this encounter Plan of Treatment Not on file documented as of this encounter Visit Diagnoses Not on filedocumented in this encounter
--- OUTSIDE RECORDS SUMMARY | 2024-12-05 07:35 | XMS_ITS | Clinical Summary ---
Author Organization [facility] Address [address] [facility] Attn: Epic Prelude ADT DOE RODRIGUEZMEENA DELGADO [address] Care Team Providers Care Cooler Worker Name Role Phone Unavailable Primary Care Provider Unavailabl e Social History Tobacco Use Types Packs/Day Years Used Date Smoking Tobacco: Never Assessed Comments Unknown Sex and Gender Information Value Date Recorded Sex Assigned at Not on file Legal Sex Female 3:56 AM INNOVATION MANAGER Gender Identity Not on file Sexual Orientation Not on file Plan of Treatment Health Maintenance Due Date Last Done Comments DTAP/TDAP/TD VACCINES (1 - Tdap) 1987 HEPATITIS B VACCINES (1 of 3 - 19+ 3-dose series) 1987 CERVICAL CANCER SCREENING 1998 BREAST CANCER SCREENING 2008 COLORECTAL SCREENING 2013 Colorectal Cancer Screening 2013 FIT-DNA Q 3 years 2013 FIT/FOBT Q 1 year 2013 Flex Sig/CT Colonography Q 5 years 2013 ZOSTER VACCINE (1 of 2) 2018 INFLUENZA VACCINE (#1) 2024 PNEUMOCOCCAL VACCINE 0-64 YEARS Aged Out No longer eligible based on patient's age to complete this topic
--- OUTSIDE RECORDS SUMMARY | 2024-12-05 07:35 | XMS_ITS | Encounter Summary ---
Author Organization [facility] Address [address] [place] [address] Care Team Providers Care Funeral Home Makeup Artist Name Role Phone Unavailable Primary Care Provider Unavailabl e Encounter Details Date Type Department Care Team (Late st Contact Info) Description 08/28/1999 Outpatient Historical [facility] Health [facility] [address] [facility] [address] [address] Juan Hector MD [address] [place] [address] Social History Tobacco Use Types Packs/Day Years Used Date Smoking Tobacco: Never Assessed Comments Unknown Sex and Gender Information Value Date Recorded Sex Assigned at Not on file Legal Sex Female 3:56 AM RELATIONSHIP CONSULTANT Gender Identity Not on file Sexual Orientation Not on file documented as of this encounter Plan of Treatment Not on file documented as of this encounter Visit Diagnoses Not on filedocumented in this encounter
--- OUTSIDE RECORDS SUMMARY | 2024-12-05 07:36 | XMS_ITS | Clinical Summary ---
Author Organization [facility] Address [address] [place] [address] Care Team Providers Care Electrician Machine Shop Name Role Phone Jh Mckenzie NP Primary Care Provider [phone] Allergies No known active allergies Medications multivitamin capsule Take 1 capsule by mouth daily. Active calcium carbonate-vitam in D3 1,500 mg (600mg elemental) -800 unit per tablet Take 1 tablet by mouth daily. Active vitamin E 400 unit capsule Take 400 Units by mouth daily. Active ergocalciferol (VITAMIN D) 50,000 unit capsule Take 50,000 Units by mouth once a week. Active norethindrone-e .estradiol-iron (ESTROSTEP FE) 1-20(5)/1-30(7) /1mg-35mcg (9) tablet Take 1 tablet by mouth daily. Active Active Problems Problem Noted Date Diagnosed Date Dry cough 01/20/2018 Hyperlipidemia LDL goal <130 01/20/2018 Elevated blood pressure reading 01/20/2018 Atypical chest pain 01/20/2018 DENIS (dyspnea on exertion) 01/20/2018 Surgical History Surgery Date Site/Laterality Comments HYSTERECTOMY Medical History Medical History Date Comments Hx Other Medical breast implants Hx Other Medical dysmenorrhea Fibroid tumor Family History Medical History Relation Name Comments Parkinsonism Brother 1 Heart disease Brother 2 Bladder Cancer Father Cancer, bladd er; Coronary artery disease Father Loren nary artery disease; Stroke Father Bladder Cancer Mother Coronary artery disease Mother Loren nary artery disease; Heart disease Sister 2 Relation Name Status Comments Brother 1 Alive Brother 2 Alive Father Alive Mother Alive Sister 1 Alive Sister 2 Alive Social History Tobacco Use Types Packs/Day Years Used Date Smoking Tobacco: Never Smokeless Tobacco: Never Alcohol Use Standard Drinks/Week Comments Yes 1 (1 standard drink = 0.6 oz pur e alcohol) bi-weekly Comments Unknown Sex and Gender Information Value Date Recorded Sex Assigned at Not on file Legal Sex Female 2:56 AM EP SPECIALIST Gender Identity Not on file Sexual Orientation Not on file Obstetrics History Last Filed Vital Signs Vital Sign Reading Time Taken Comments Blood Pressure 128/82 03/22/2018 2:05 PM CDT Pulse 62 03/22/2018 2:05 PM CDT Temperature - - Respiratory Rate - - Oxygen Saturation 96% 03/22/2018 2:05 PM CDT Inhaled Oxygen Concentration - - Weight 83 kg (183 lb) 03/22/2018 2:05 PM CDT Height 167.6 cm (5' 6 ) 03/22/2018 2:05 PM CDT Body Mass Index 29.54 03/22/2018 2:05 PM CDT Plan of Treatment Not on file Insurance [facility] H[facility]PPO Address: [facility] [address] [place] [address] [facility] H[facility]/PPO Address: [facility] [address] [place] [address] Care Teams Electrician Machine Shop Relationship Specialty Start Date End Date Jh Mckenzie NP [address] [place] [address] PCP - General Nurse Practitioner 11/06/24
--- OUTSIDE RECORDS SUMMARY | 2024-12-05 07:36 | XMS_ITS | Referral Summary ---
Author Organization [facility] Address [address] [place] [address] Care Team Providers Care Steel Tester Name Role Phone Jh Mckenzie NP Primary Care Provider [phone] Allergies No known active allergies Medications multivitamin [...] pain 01/20/2018 DENIS (dyspnea on exertion) 01/20/2018 Social History Tobacco Use Types Packs/Day Years Used Date Smoking Tobacco: Never Smokeless Tobacco: Never Alcohol Use Standard Drinks/Week Comments Yes 1 (1 standard drink = 0.6 oz pur e alcohol) bi-weekly Comments Unknown Sex and Gender Information Value Date Recorded Sex Assigned at Not on file Legal Sex Female 2:56 AM SALAD MAKER Gender Identity Not on file Sexual Orientation [...] Treatment Not on file Insurance CHOICE PLUS CHOICE PLUS Care Teams Steel Tester Relationship Specialty Start Date End Date Jh Mckenzie NP [address] [place] [address] PCP - General Nurse Practitioner 11/06/24
--- OUTSIDE RECORDS SUMMARY | 2024-12-05 07:36 | XMS_ITS | Encounter Summary ---
Author Organization [facility] Address [address] [place] [address] Care Team Providers Care Bullard Machine Operator Name Role Phone Unavailable Primary Care Provider Unavailabl e Encounter Details Date Type Department Care Team (Late st Contact Info) Description 05/06/2001 Outpatient Historical [facility] Health [facility] [address] [facility] [address] [address] Juan Hector MD [address] [place] [address] Social History Tobacco Use Types Packs/Day Years Used Date Smoking Tobacco: Never Assessed Comments Unknown Sex and Gender Information Value Date Recorded Sex Assigned at Not on file Legal Sex Female 3:56 AM BLOCKMAN Gender Identity Not on file Sexual Orientation Not on file documented as of this encounter Plan of Treatment Not on file documented as of this encounter Visit Diagnoses Not on filedocumented in this encounter
--- OUTSIDE RECORDS SUMMARY | 2024-12-05 07:36 | XMS_ITS | Encounter Summary ---
Author Organization [facility] Address [address] [place] [address] Care Team Providers Care National Account Executive Name Role Phone Unavailable Primary Care Provider Unavailabl e Encounter Details Date Type Department Care Team (Late st Contact Info) Description 04/29/2001 Outpatient Historical [facility] Health [facility] [address] [facility] [address] [address] Juan Hector MD [address] [place] [address] Social History Tobacco Use Types Packs/Day Years Used Date Smoking Tobacco: Never Assessed Comments Unknown Sex and Gender Information Value Date Recorded Sex Assigned at Not on file Legal Sex Female 3:56 AM SET OFF PRESS OPERATOR Gender Identity Not on file Sexual Orientation Not on file documented as of this encounter Plan of Treatment Not on file documented as of this encounter Visit Diagnoses Not on filedocumented in this encounter
--- OUTSIDE RECORDS SUMMARY | 2024-12-05 07:36 | XMS_ITS | Continuity of Care Document ---
Author Organization [facility] Address [address] [place] [address] utive [facility] [address] [place] [address] Phone Care Team Providers Care Corporation Pilot Name Role Phone Preston Salamancahil Unavailable Unavailable Procedures Procedure Date Eye Exam, New Patient Advance Directives Directive Yes / No Effective Date File Name No Information Encounters Encounter Description Practice Location Reason(s) For Visit Diagnoses Date Provider Providers Copied on Encounter [facility], [address] [place] [address] [address], [place], [place], [id number], [place] tel:[phone] [facility] [place] No Information [address] [facility] [address], [place], [address], [place]. tel:[phone] Family History Family Member Type Diagnosis Age At Onset No Information Payers Payer name Insurance type Covered republican ID Authoriza tion(s) No Information Social History Type Description Quantity Date Captured Comments Sex Female Smoking Status No Information Chief Complaint And Reason For Visit No Information Reason For Referral Reason For Referral No Information History Of Present Illness Encounter Date Complaint History Of Prese nt Illness No Information Functional Status Date Functional Assessmen t No Information Instructions Date Instruction Additional Infor mation No Information Assessments Type Assessment Date No Information Patient Care Teams Name Effective Dates (start - stop) Status Members No Information
--- NOTE | 2024-12-05 07:42 | ECHO_ITS ---
Patient Info Name: Di Canales Age: 54 years : 1970 Gender: Female Ht: 66 in Wt: 185 lbs BSA: 2.00 m2 HR: 67 bpm BP: 139 / 74 mmHg Heart Rhythm: Sinus Rhythm Technical Quality: Fair Exam Date: 12/05/2024 7:49 AM Exam Location: Echo Lab Patient Status: Outpatient Admit Date: 12/05/2024 Staff Ordering Physician: Jh Mckenzie APRN Boiler Inspector: Vivian Dietrich RDCS Attending Provider: Jh Mckenzie APRN Referring Physician: Jonah CRUZ; Exam Type: CA echo doppler color flow Study Info Indications - CARDIOMEGALY Complete two-dimensional, color flow and Doppler transthoracic echocardiogram is performed. Summary 1. Left ventricular chamber dimension is normal. 2. Left ventricular systolic function is normal, estimated at 50-55%. 3. The left ventricular diastolic function is normal. 4. Right ventricular systolic function is normal. 5. There is mild tricuspid valve regurgitation. Left Ventricle Left ventricular chamber dimension is normal. Left ventricular systolic function is normal, estimated at 50-55%. There is no increased left ventricular wall thickness. The left ventricular diastolic function is normal. Right Ventricle Right ventricular chamber dimension is normal. Right ventricular systolic function is normal. Left Atria Left atrial chamber dimension is normal. Right Atria Right atrial chamber dimension is normal. Atrial Septum Intact interatrial septum visualized by color flow imaging. Aortic Valve The aortic valve is trileaflet. There is no aortic valve stenosis. Pulmonic Valve The pulmonic valve is not well visualized. There is no pulmonic regurgitation. Mitral Valve There is trace mitral valve regurgitation. Tricuspid Valve There is mild tricuspid valve regurgitation. Pericardium/Pleural There is no pericardial effusion. Inferior Vena Cava Dilated inferior vena cava with <50% collapse upon inspiration consistent with elevated right atrial pressure, 15 mmHg. Aorta The aortic root size at the sinus of Valsalva is normal. Left Ventricular Outflow Tract Name Value Normal LVOT 2D LVOT Diameter 2.0 cm LVOT Doppler LVOT Peak Gradient 4 mmHg LVOT Mean Gradient 2 mmHg LVOT VTI 21 cm LVOT VTI/AV VTI Ratio 0.8 LVOT Stroke Volume 66 ml LVOT CO 3.6 l/min LVOT CI 1.8 l/min/m2 Pulmonic Valve Name Value Normal RVOT Doppler RVOT Peak Gradient 2 mmHg PV Doppler PV Peak Gradient 2 mmHg Mitral Valve Name Value Normal MV Doppler MV Decel [place] 398 cm/s2 MV PHT 42 ms MV Area (PHT) 5.3 cm2 4.0-5.0 MV Diastolic Function MV E Peak Velocity 57 cm/s MV A Peak Velocity 57 cm/s MV E/A 1.0 MV Decel Time 144 ms MV Annular TDI MV E/e' (Septal) 5.4 <=8.0 MV E/e' (Lateral) 3.7 <=8.0 MV E/e' (Average) 4.6 Tricuspid Valve Name Value Normal Estimated PAP/RSVP RA Pressure 15 mmHg <=5 Aorta Name Value Normal Ascending Aorta Ao Root Diameter (MM) 2.8 cm Ao Root Diam Index (MM) 1.4 cm/m2 Aortic Valve Name Value Normal AV Doppler AV Peak Velocity 110 cm/s AV Peak Gradient 5 mmHg AV Mean Gradient 3 mmHg AV VTI 25 cm AV Area (Cont Eq VTI) 2.6 cm2 >=3.0 AV Area (Cont Eq Steven) 2.8 cm2 AV Regurgitation 2D LVOT Area 3.2 cm2 Ventricles Name Value Normal LV Dimensions 2D/MM IVS Diastolic Thickness (2D) 1.0 cm 0.6-1.0 LVID Diastole (2D) 4.8 cm 3.8-5.2 LVIW Diastolic Thickness (2D) 1.0 cm 0.6-0.9 LVID Systole (2D) 3.0 cm 2.2-3.5 LVOT Diameter 2.0 cm LV Mass (2D Cubed) 174.02 g 67.00-162.00 LV Mass Index (2D Cubed) 87 g/m2 43-95 Relative Wall Thickness (2D) 0.42 LV Fractional Shortening/Ejection Fraction 2D/MM LV Fractional Shortening (2D) 38 % 27-45 LV EF (2D Teicholz) 68 % 54-74 LV Diastolic Volume (4C MOD) 110 ml LV EF (4C MOD) 59 % LV Diastolic Volume (2C MOD) 110 ml LV EF (2C MOD) 61 % LV Diastolic Volume (BP MOD) 114 ml 46-106 LV Diastolic Volume Index (BP MOD) 57 ml/m2 29-61 LV Systolic Volume (BP MOD) 45 ml 14-42 LV Systolic Volume Index (BP MOD) 23 ml/m2 8-24 LV EF (BP MOD) 60 % 54-74 LV Diastolic Length (4C) 8.5 cm LV Systolic Length (4C) 6.8 cm LV Stroke Volume (4C MOD) 65 ml Atria Name Value Normal LA Dimensions LA Dimension (MM) 3.5 cm 2.7-3.8 LA Volume (4C A-L) 70 ml LA Volume (BP A-L) 60 ml RA Dimensions RA Area (4C) 20.7 cm2 <=18.0 Report Signatures
== END 2024-12-05 07:30 | disposition home or self-care (01) ==
PROVIDERS: PCP Nurse Practitioner; Visit Provider Nurse Practitioner
DX: I51.7 Cardiomegaly (principal)
CPT/HCPCS: 93306

== ENCOUNTER 2024-12-15 09:34 | Outpatient (CLI) | payer OTHER, SELFPAY ==
--- NOTE | ~2024-12-15 | NM_ITS ---
EXAMINATION: NM linden stress w perfusion DATE: 12/15/2024 11:33 INDICATION: Chest pain TECHNIQUE: Rest images were obtained following intravenous administration of 10.9 mCi Tc99m tetrofosm in (Myoview). The patient was infused intravenously with Lexiscan (Regadenoson). Then, 34.91 mCi Tc99 m tetrofosmin (Myoview) was administered intravenously, and stress images were obtained. Data was rec onstructed into short axis and horizontal and vertical long axis SPECT images. Gated SPECT images wer e also obtained. COMPARISON: None. FINDINGS: There is no definite reversible or fixed perfusion abnormality to suggest ischemia or infar ction. There is normal left ventricular chamber size, wall motion and ejection fraction. Left ventr icular ejection fraction measures 67%. IMPRESSION: 1. Normal myocardial perfusion at rest and during stress. 2. Left ventricular ejection fraction measuring 67%. Reviewed, dictated and finalized at location A. UCTION LINE TECHNICIAN
--- OUTSIDE RECORDS SUMMARY | 2024-12-15 10:13 | XMS_ITS | Clinical Summary ---
Author Organization [facility] [employer] Address [address] [facility] [place] [address] Care Team Providers Care Software Development Advisor Name Role Phone Alfredo Diamond MD Primary Care Provider [phone] Source Comments [facility] [employer],non-owned Affiliates and Associated Physician Practices is amultiple site organization consisting of ambulatory clinics and hospital sitesin [place], [place], [place]. This disclosure is being madepursuant to the Care Everywhere program and may not contain all information available regarding this patient. Last updated 18.[facility] [employer] Allergies No known active allergies Medications * [...] times daily Active vitamin D, ergocalciferol, (DRISDOL) 74961 UNITS capsule Take 1 capsule by mouth [...] cancer 01/10/2012 Overview (01/10/2012): Pap/pelvic done by CIS COORDINATOR 07/2011 told ok GERD (gastroesophageal reflux disease) Resolved Problems Problem Noted Date Diagnosed Date Resolved Date Elevated BP 01/10/2012 02/08/2012 Generalized headaches 2011 Encounters Date Type Department Care Team Description 12/11/2024 3:00 PM PSYCHOLOGICAL AIDE Office Visit [facility] EXCEPTIONAL STUDENT EDUCATION TEACHER[address], [address] [address] Buck Carreno MD Ovarian mass (Primary Dx); Pelvic pain in female 12/11/2024 2:30 PM PSYCHOLOGICAL AIDE OBGYN RADIOLOGY [facility] EXCEPTIONAL STUDENT EDUCATION TEACHER[address], [address] [place] [address] Ovarian mass 12/11/2024 Travel 11/03/2024 Orders Only [facility] EXCEPTIONAL STUDENT EDUCATION TEACHER[address], [address] [place] [address] Buck Carreno MD Pelvic pain in female 10/27/2024 Telephone [facility] EXCEPTIONAL STUDENT EDUCATION TEACHER[address], [address] [place] [address] [facility] (Pt is scheduled for 11/03 @ 11:30 @ [facility] for a CT scan. Per Adrian V procedure code 79411 requires an authorization. Auth # is [id number]) 10/16/2024 10:20 AM PSYCHOLOGICAL AIDE Office Visit [facility] EXCEPTIONAL STUDENT EDUCATION TEACHER [address] [place] [address], [address] [place] [address] Buck Carreno MD Pelvic pain in female (Primary Dx) 10/16/2024 9:30 AM PSYCHOLOGICAL AIDE OBGYN RADIOLOGY [facility] - EXCEPTIONAL STUDENT EDUCATION TEACHER [address] [facility], [address] [place] [address] Pelvic pain in female 10/16/2024 Travel from Last 3 Months Family History [...] Date Recorded Patient Health Questionnaire-2 Score 0 12/11/2024 Sex and Gender Information Value Date Recorded Sex Assigned at Not on file Gender Identity Not on file Sexual Orientation Not on file Last Filed Vital Signs Vital Sign Reading Time Taken Comments Blood Pressure 126/80 12/11/2024 2:53 PM PSYCHOLOGICAL AIDE Pulse 66 04/11/2013 9:00 PM CDT Temperature 36.8 C (98.2 F) 04/11/2013 4:42 PM CDT Respiratory Rate 20 04/11/2013 9:00 PM CDT Oxygen Saturation 96% 04/11/2013 9:00 PM CDT Inhaled Oxygen Concentration - - Weight 81.6 kg (180 lb) 12/11/2024 2:53 PM PSYCHOLOGICAL AIDE Height 164 cm (5' 4.57 ) 12/11/2024 2:53 PM PSYCHOLOGICAL AIDE Body Mass Index 30.36 12/11/2024 2:53 PM PSYCHOLOGICAL AIDE Plan of Treatment Health Maintenance Due Date [...] 02/25/2021, 02/01/2021 INFLUENZA VACCINE (#1) 2024 08/04/2018 MAMMOGRAM 05/12/2025 05/12/2024, 04/24 (Done Outside Per Report), 03/17/2022, Additional history exists PAP with HPV 09/04/2029 09/04/2024, 07/27, 07/24/2022, Additional history exists DEPRESSION SCREENING Completed 12/11/2024, 08/23/2023, 07/24/2022 HIB VACCINE Aged Out No longer eligi [...] Procedure Name Priority Date/Time Associated Diagnosis Comments NON-OB PELVIC SONOGRAM Routine 5 3:25 PM PSYCHOLOGICAL AIDE Ovarian mass CT ABDOMEN PELVIS W CONTRAST Routine 11/03/2024 Pelvic pain in female NON-OB PELVIC SONOGRAM Routine 4 10:33 AM PSYCHOLOGICAL AIDE Pelvic pain in female PAP IG LB+HPV APTIMA Routine 09/04/2024 10:09 AM PSYCHOLOGICAL AIDE Well woman exam MAMMOGRAM 05/12/2024 COMPREHENSIVE METABOLIC PANEL Routine 10/30/2017 10:14 AM PSYCHOLOGICAL AIDE Well woman exam LIPID PROFILE W TCHOL/HDL Routine 10/30/2017 10:14 AM PSYCHOLOGICAL AIDE Well woman exam from Last 3 Months or Most Recently Relevant to Health Maintenance Results * NON-OB PELVIC SONOGRAM (12/11/2024 3:25 PM PSYCHOLOGICAL AIDE) Only the most recent of2 resultswithin the time period is included. Linked Results Indication ======== Mass on CT Method ====== Transvaginal ultrasound Uterus ====== Visualized. Size 68 mm x 42 mm x 38 mm Position: anteverted No polyps identified Fibroid(s) 1. Size 24 mm x 25 mm x 28 mm. Mean 25.7 mm. Vol 8.796 cm 2. Size 18 mm x 17 mm x 22 mm. Mean 19.0 mm. Vol 3.525 cm 3. Size 11 mm x 9 mm x 10 mm. Mean 10.0 mm. Vol 0.518 cm Right Ovary ========= Visualized. Size 20 mm x 12 mm x 22 mm Left Ovary ======== Not visualized Cul de Sac ========= Visualized. No free fluid visualized Impression ========= The uterus is seen anteverted normal in size and shape. There are three fibroids seen measuring from 1 to 2.6 cms in mean diameter. The number has increased from two to three since her last US late last year but the third one is very small. The endometrium is not seen due to the location of her fibroids. The left ovary is not seen today. The right ovary is seen and is normal in size and appearance. There is no visible mass present in the right ovary as suggested by her recent CT scan. The ovary has a benign appearance as there is no color doppler blood in the center of the ovary only the periphery. There is no free fluid in the cul de sac. Coding ====== Procedures [id number]: US Transvaginal Non OB [place] PACS Anatomical Region Laterality Modality Other 12/11/2024 3:25 PM PSYCHOLOGICAL AIDE Buck Carreno MD [facility] ORDERABLES * CT ABDOMEN AND PELVIS WITH IV CONTRAST (11/03/2024) Anatomical Region Laterality Modality Abdomen, Pelvis Other 11/03/[address] ORDERABLES * PAP IG LB+HPV APTIMA (09/04/2024 10:09 AM PSYCHOLOGICAL AIDE) Diagnosis Comment [facility] INSURANCE BILL Comment: NEGATIVE FOR INTRAEPITHELIAL LESION OR MALIGNANCY. CELLULAR CHANGES ASSOCIATED WITH ATROPHY ARE PRESENT. Specimen Adequacy Comment [facility] INSURANCE BILL Comment: Satisfactory for evaluation. Endocervical component may not be distinguished in cases of atrophy. Clinician Provided ICD10 Comment [facility] INSURANCE BILL Comment:Z01.419 Performed by Comment [facility] INSURANCE BILL Comment:Diamond López, Cytot echnologist (ASCP) Comment . [facility] INSURANCE BILL Note Comment [facility] INSURANCE BILL Comment: The Pap smear is a screening test designed to aid in the detection of premalignant and malignant conditions of the uterine cervix. It is not a diagnostic procedure and should not be used as the sole means of detecting cervical cancer. Both false-positive and false-negative reports do occur. [facility] CPT Code Automation Comment [facility] INSURANCE BILL Comment: This liquid based ThinPrep(R) pap test was screened with the use of an image guided system. Human papillomavirus Aptima Negative Negative [facility] INSURANCE BILL Comment: This nucleic acid amplification test detects fourteen high-risk HPV types (16,18,31,33,35,39,45,51,52,56,58,59,66,68) without differentiation. Pathology/Cytolog y PART OF UTERINE CERVIX / Unknown 09/04/2024 10:09 AM PSYCHOLOGICAL AIDE 09/04/2024 Comment:Cervix Release to pa t Narrative [facility] [place] INSURANCE BILL - 09/11/2024 1:08 PM PSYCHOLOGICAL AIDE Performed at: 01 - [address] [place] [id number] Merchant Mariner: Leeann Mcclain MD, Phone: [phone] Performed at: 02 - [facility] [address] [facility] Center[address] [place], [place] [id number] Merchant Mariner: Leeann Mcclain MD, Phone: [phone] Specimen Comment: [id number] Specimen Comment: No. of containers..01 ThinPrep Vial Buck Carreno MD LAB - PATHOLOGY/CYT OLOGY ORDERABLES [facility] INSURANCE BILL [address] [place] [address] * MAMMOGRAM (05/12/2024) Anatomical Region Laterality Modality Other 05/12/2024 Narrative 05/12/2024 Ordered by an unspecified provider. Scanned Document SCANNING ONLY * (ABNORMAL) LIPID PROFILE W TCHOL/HDL (10/30/2017 10:14 AM PSYCHOLOGICAL AIDE) Cholesterol 212(H) 100 - 199 mg/dL [facility] [...] BLOOD SPECIMEN / Unknown 10/30/2017 10:14 AM PSYCHOLOGICAL AIDE 10/30/2017 Narrative Resulting Agency Comment [facility] [address] [facility] [id number] Buck Carreno MD LAB - CHEMISTRY ORD ERABLES [facility] ACCOUNT BILL [address] [place] [address] * COMPREHENSIVE METABOLIC PANEL (10/30/2017 10:14 AM PSYCHOLOGICAL AIDE) Glucose 86 65 - 99 mg/dL [facility] [...] BLOOD SPECIMEN / Unknown 10/30/2017 10:14 AM PSYCHOLOGICAL AIDE 10/30/2017 Narrative Resulting Agency Comment [facility] [address] [facility] [id number] Buck Carreno MD LAB - CHEMISTRY ORD ERABLES [facility] ACCOUNT BILL [address] [place] [address] from Last 3 Months or Most Recently Relevant to Health Maintenance Care Teams Software Development Advisor Relationship Specialty Start Date End Date Alfredo Diamond MD [address] [place] [address] PCP - General Internal Medicine 07/18/21
--- OUTSIDE RECORDS SUMMARY | 2024-12-15 10:13 | XMS_ITS | Referral Summary ---
Author Organization [facility] Address [address] [place] [address] Care Team Providers Care Scraper Tender Name Role Phone Alfredo Diamond MD Primary Care Provider [phone] Source Comments [facility],non-[facility] Affiliates and Associated Physician Practices is amultiple site organization consisting of ambulatory clinics and hospital sitesin [place], [place], [place] and [place]. This disclosure is being madepursuant to the Care Everywhere program and may not contain all information available regarding this patient. Last updated 18.[facility] Encounters Date Type Department Care Team Description 12/11/2024 Travel 12/11/2024 3:00 PM BRAKE REPAIR MECHANIC Office Visit [facility] - FURNACE UTILITY OPERATOR [address] [place] [address], [address] [phone] Buck Carreno MD Ovarian mass (Primary Dx); Pelvic pain in female 12/11/2024 2:30 PM BRAKE REPAIR MECHANIC OBGYN RADIOLOGY [facility] - FURNACE UTILITY OPERATOR [address] [place] [address], [address] [place] [phone] Ovarian mass 11/03/2024 Orders Only [facility] - FURNACE UTILITY OPERATOR [address] [place] [address], [address] [place] [phone] Buck Carreno MD Pelvic pain in female 10/27/2024 Telephone [facility] - FURNACE UTILITY OPERATOR [address] [place] [address], [address] [place] [phone] [facility] (Pt is scheduled for 11/03 @ 11:30 @ [facility] for a CT scan. Per Adrian Newton procedure code 13169 requires an authorization. Auth # is [id number]) 10/16/2024 Travel 10/16/2024 10:20 AM BRAKE REPAIR MECHANIC Office Visit [facility] - FURNACE UTILITY OPERATOR [address] [place] [address], [address] [phone] Buck Carreno MD Pelvic pain in female (Primary Dx) 10/16/2024 9:30 AM BRAKE REPAIR MECHANIC OBGYN RADIOLOGY [facility] - FURNACE UTILITY OPERATOR [address] [place] [address], [address] [address] Pelvic pain in female from Last 3 Months Allergies No known [...] times daily Active vitamin D, ergocalciferol, (DRISDOL) 86229 UNITS capsule Take 1 capsule by mouth [...] cancer 01/10/2012 Overview (01/10/2012): Pap/pelvic done by NEEDLE FELT MAKING MACHINE OPERATOR 07/2011 told ok GERD (gastroesophageal reflux disease) [...] Comments Blood Pressure 126/80 12/11/2024 2:53 PM BRAKE REPAIR MECHANIC Pulse 66 04/11/2013 9:00 PM CDT Temperature 36.8 C (98.2 F) 04/11/2013 4:42 PM CDT Respiratory Rate 20 04/11/2013 9:00 PM CDT Oxygen Saturation 96% 04/11/2013 9:00 PM CDT Inhaled Oxygen Concentration - - Weight 81.6 kg (180 lb) 12/11/2024 2:53 PM BRAKE REPAIR MECHANIC Height 164 cm (5' 4.57 ) 12/11/2024 2:53 PM BRAKE REPAIR MECHANIC Body Mass Index 30.36 12/11/2024 2:53 PM BRAKE REPAIR MECHANIC Plan of Treatment Not on file Procedures Procedure Name Priority Date/Time Associated Diagnosis Comments NON-OB PELVIC SONOGRAM Routine 5 3:25 PM BRAKE REPAIR MECHANIC Ovarian mass CT ABDOMEN PELVIS W CONTRAST Routine 11/03/2024 Pelvic pain in female NON-OB PELVIC SONOGRAM Routine 4 10:33 AM BRAKE REPAIR MECHANIC Pelvic pain in female PAP IG LB+HPV APTIMA Routine 09/04/2024 10:09 AM BRAKE REPAIR MECHANIC Well woman exam MAMMOGRAM 05/12/2024 COMPREHENSIVE METABOLIC PANEL Routine 10/30/2017 10:14 AM BRAKE REPAIR MECHANIC Well woman exam LIPID PROFILE W TCHOL/HDL Routine 10/30/2017 10:14 AM BRAKE REPAIR MECHANIC Well woman exam from Last 3 Months or Most Recently Relevant to Health Maintenance Results * NON-OB PELVIC SONOGRAM (12/11/2024 3:25 PM BRAKE REPAIR MECHANIC) Only the most recent of2 resultswithin the [...] the cul de sac. Coding ====== Procedures 87446: US Transvaginal Non OB [employer] PACS Anatomical Region Laterality Modality Other 12/11/2024 3:25 PM BRAKE REPAIR MECHANIC Buck Carreno MD [facility] ORDERABLES * CT ABDOMEN AND PELVIS WITH IV CONTRAST (11/03/2024) Anatomical Region Laterality Modality Abdomen, Pelvis Other 11/03/[address] ORDERABLES * PAP IG LB+HPV APTIMA (09/04/2024 10:09 AM BRAKE REPAIR MECHANIC) Diagnosis Comment [facility] INSURANCE BILL Comment: NEGATIVE FOR INTRAEPITHELIAL LESION OR MALIGNANCY. CELLULAR CHANGES ASSOCIATED WITH ATROPHY ARE PRESENT. Specimen Adequacy Comment [facility] INSURANCE BILL Comment: Satisfactory for evaluation. Endocervical component may not be distinguished in cases of atrophy. Clinician Provided ICD10 Comment [facility] INSURANCE BILL Comment:Z01.419 Performed by Comment [facility] Comment:Diamond López, Cytot echnologist (ASCP) Comment . [facility] INSURANCE BILL Note Comment [facility] INSURANCE BILL Comment: The Pap smear is a screening test designed to aid in the detection of premalignant and malignant conditions of the uterine cervix. It is not a diagnostic procedure and should not be used as the sole means of detecting cervical cancer. Both false-positive and false-negative reports do occur. [facility] CPT Code Automation Comment [facility] INSURANCE BILL Comment: This liquid based ThinPrep(R) pap test was screened with the use of an image guided system. Human papillomavirus Aptima Negative Negative [facility] INSURANCE BILL Comment: This nucleic acid amplification test detects fourteen high-risk HPV types (16,18,31,33,35,39,45,51,52,56,58,59,66,68) without differentiation. Pathology/Cytolog y PART OF UTERINE CERVIX / Unknown 09/04/2024 10:09 AM BRAKE REPAIR MECHANIC 09/04/2024 Comment:Cervix Release to pa talisha Narrative [facility] INSURANCE BILL - 09/11/2024 1:08 PM BRAKE REPAIR MECHANIC Performed at: 01 - [facility] [id number] [employer]: Leeann Mcclain MD, Phone: [phone] Performed at: 02 - [address] [id number] [employer]visor [employer]: Leeann Mcclain MD, Phone: [phone] Specimen Comment: [id number] Specimen Comment: No. of containers..01 ThinPrep Vial Buck Carreno MD LAB - PATHOLOGY/CYT OLOGY ORDERABLES [facility] INSURANCE BILL [address] [place] [address] * MAMMOGRAM (05/12/2024) Anatomical Region Laterality Modality Other 05/12/2024 Narrative 05/12/2024 Ordered by an unspecified provider. Scanned Document SCANNING ONLY * (ABNORMAL) LIPID PROFILE W TCHOL/HDL (10/30/2017 10:14 AM BRAKE REPAIR MECHANIC) Cholesterol 212(H) 100 - 199 mg/dL [facility] [...] BLOOD SPECIMEN / Unknown 10/30/2017 10:14 AM BRAKE REPAIR MECHANIC 10/30/2017 Narrative Resulting Agency Comment [facility] [address] [facility] [id number] Buck Carreno MD LAB - CHEMISTRY ORD ERABLES [facility] ACCOUNT BILL [address] [place] [address] * COMPREHENSIVE METABOLIC PANEL (10/30/2017 10:14 AM BRAKE REPAIR MECHANIC) Glucose 86 65 - 99 mg/dL [facility] [...] BLOOD SPECIMEN / Unknown 10/30/2017 10:14 AM BRAKE REPAIR MECHANIC 10/30/2017 Narrative Resulting Agency Comment [facility] [address] [facility] [phone] Buck Carreno MD LAB - CHEMISTRY ORD ERABLES [facility] ACCOUNT BILL [address] [place] [address] from Last 3 Months or Most Recently Relevant to Health Maintenance Care Teams Scraper Tender Relationship Specialty Start Date End Date Alfredo Diamond MD [address] [place] [phone] PCP - General Internal Medicine 07/18/21
--- NOTE | 2024-12-15 10:14 | EST_ITS ---
Patient Info Name: Di Canales Age: 54 years : 1970 Gender: Female Ht: 66 in Wt: 185 lbs BSA: 2.00 m2 HR: 61 bpm BP: 120 / 77 mmHg Exam Date: 12/15/2024 10:29 AM Exam Location: Echo Lab Patient Status: Outpatient Admit Date: 12/15/2024 Staff Ordering Physician: Jh Mckenzie APRN Attending Provider: Jh Mckenzie APRN Exercise Technologist: Marcella Muro RDCS Nurse: Tiffany Huddleston APN Exam Type: CA stress linden w NM Study Info A regadenoson stress test was performed. Summary 1. No abnormal ST/T wave changes diagnostic of ischemia. 2. Please correlate with nuclear medicine images, reported separately. 3. Stress test supervised by Tiffany Huddleston NP and interpreted by Mazin Vera MD. Protocol: Lexiscan Stress ECG Details Stage: REST Duration (min): 2 min : 1 sec HR (bpm): 61 SBP (mmHg): 120 DBP (mmHg): 77 Stage: REST Duration (min): 7 min : 32 sec HR (bpm): 68 SBP (mmHg): 120 DBP (mmHg): 77 Stage: STAGE 1 Duration (min): 0 min : 59 sec HR (bpm): 103 SBP (mmHg): 132 DBP (mmHg): 84 Stage: RECOVERY Duration (min): 1 min : 0 sec HR (bpm): 91 SBP (mmHg): 132 DBP (mmHg): 84 Stage: RECOVERY Duration (min): 2 min : 0 sec HR (bpm): 93 SBP (mmHg): 132 DBP (mmHg): 84 Stage: RECOVERY Duration (min): 3 min : 0 sec HR (bpm): 84 SBP (mmHg): 140 DBP (mmHg): 83 Stage: RECOVERY Duration (min): 3 min : 51 sec HR (bpm): 81 SBP (mmHg): 140 DBP (mmHg): 83 Rest HR: 68 bpm Peak HR: 103 bpm Rest Sys BP: 120 mmHg Peak Sys BP: 140 mmHg Max Pred HR: 164 bpm % Max Pred HR: 63 % Target HR: 139 bpm Max RPP: 14,420 bpm*mmHg Total Time: 1 min : 0 sec Rest Galvan BP: 77 mmHg Peak Galvan BP: 83 mmHg Total Dose: 0.4 mg Resting ECG Sinus rhythm with sinus arrhythmia. Stress ECG Sinus tachycardia. No abnormal ST/T wave changes diagnostic of ischemia. Arrhythmias None. Report Signatures
--- OUTSIDE RECORDS SUMMARY | 2024-12-15 10:14 | XMS_ITS | Referral Summary ---
Author Organization [facility] Address [address] [place] [address] Care Team Providers Care Fine Grade Operator Name Role Phone Jh Mckenzie NP Primary Care Provider Allergies No known active allergies Medications multivitamin [...] on file Legal Sex Female 2:56 AM CORRECTIONAL FACILITY PSYCHIATRIST Gender Identity Not on file Sexual Orientation [...] CDT Plan of Treatment Not on file Procedures Procedure Name Priority Date/Time Associated Diagnosis Comments SCREENING MAMMOGRAM BILATERAL W BRIAN W IMPLANTS Schedule Routine, Read Routine (OP Routine) 01/04/2019 10:13 AM CDT Encounter for screening mammogram for malignant neoplasm of breast from Last 3 Months or Most Recently Relevant to Health Maintenance Results * Screening Mammogram Bilateral w Brian w Implants (01/04/2019 10:13 AM CDT) Anatomical Region Laterality Modality Breast Bilateral Mammography Narrative 01/05/2019 12:10 PM CDT Mammogram Technique: Bilateral Digital Breast Tomosynthesis, Bilateral C-view 2D Screening mammogram. Views obtained: bilateral craniocaudal; bilateral craniocaudal implant displaced; bilateral mediolateral oblique; and bilateral mediolateral oblique implant displaced. Computer Aided Detection was performed. Mammogram Findings: The present examination has been compared to prior imaging studies performed at [facility] on 11/11/2012, 09/07/2014 and 12/18/2016. The breasts are heterogeneously dense, which may obscure small masses. There are bilateral sub-glandular saline implants. There is no suspicious abnormality in either breast. Impression: Annual screening mammography is recommended. OVERALL FINAL ASSESSMENT: BI-RADS CATEGORY 1: Negative. Procedure Note Taty Gamboa MD - 01/05/2019 Mammogram Technique: Bilateral Digital Breast Tomosynthesis, Bilateral C-view 2D Screening mammogram. Views obtained: bilateral craniocaudal; bilateralcraniocaudal implant displaced; bilateral mediolateral oblique; and bilateral mediolateral oblique implant displaced. Computer Aided Detection was performed. Mammogram Findings: The present examination has been compared to prior imaging studies performed at [facility] on 11/11/2012, 09/07/2014 and 12/18/2016. The breasts are heterogeneously dense, which may obscure small masses. There are bilateral sub-glandular saline implants. There is no suspicious abnormality in either breast. Impression: Annual screening mammography is recommended. OVERALL FINAL ASSESSMENT: BI-RADS CATEGORY 1: Negative. Buck Carreno MD IMG MAMMO PROCEDURES Final Result from Last 3 Months or Most Recently Relevant to Health Maintenance Insurance CHOICE PLUS CHOICE PLUS [employer] OPEN ACCESS Care Teams Fine Grade Operator Relationship Specialty Start Date End Date Jh Mckenzie NP [address] [place] [id number] PCP - General Nurse Practitioner 11/06/24
--- OUTSIDE RECORDS SUMMARY | 2024-12-15 10:14 | XMS_ITS | Encounter Summary ---
Author Organization [facility] Address [address] [place] [address] Care Team Providers Care Night Time Nanny Name Role Phone Unavailable Primary Care Provider Unavailabl e Encounter Details Date Type Department Care Team (Late st Contact Info) Description 09/20/2000 Outpatient Historical [facility]'s Health [facility] [address] [address] Juan Hector MD [address] [place] [address] Social History Tobacco Use Types Packs/Day Years Used Date Smoking Tobacco: Never Assessed Comments Unknown Sex and Gender Information Value Date Recorded Sex Assigned at Not on file Legal Sex Female 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
--- OUTSIDE RECORDS SUMMARY | 2024-12-15 10:14 | XMS_ITS | Encounter Summary ---
Author Organization [facility] Address [address] [place] [address] Care Team Providers Care Pharmacy Tech Name Role Phone Unavailable Primary Care Provider Unavailabl e Encounter Details Date Type Department Care Team (Late st Contact Info) Description 04/29/2001 Outpatient Historical [facility]'s Health [facility] [address] [facility] [address] [address] Juan Hector MD [address] [place] [address] Social History Tobacco Use Types Packs/Day Years Used Date Smoking Tobacco: Never Assessed Comments Unknown Sex and Gender Information Value Date Recorded Sex Assigned at Not on file Legal Sex Female 3:56 AM PRODUCTION OPERATIONS ENGINEER Gender Identity Not on file Sexual Orientation Not on file documented as of this encounter Plan of Treatment Not on file documented as of this encounter Visit Diagnoses Not on filedocumented in this encounter
--- OUTSIDE RECORDS SUMMARY | 2024-12-15 10:14 | XMS_ITS | Encounter Summary ---
Author Organization [facility] Address [address] [place] [address] Care Team Providers Care Electronics Engineering Manager Name Role Phone Unavailable Primary Care Provider Unavailabl e Encounter Details Date Type Department Care Team (Late st Contact Info) Description 05/24/2000 Outpatient Historical [facility]'s Health [facility] [address] [address] Juan Hector MD [address] [place] [address] Social History Tobacco Use Types Packs/Day Years Used Date Smoking Tobacco: Never Assessed Comments Unknown Sex and Gender Information Value Date Recorded Sex Assigned at Not on file Legal Sex Female 3:56 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
--- OUTSIDE RECORDS SUMMARY | 2024-12-15 10:14 | XMS_ITS | Patient Health Summary ---
Author Organization [facility] Address [address] [place] [address] Care Team Providers Care Garment Worker Name Role Phone Alfredo Diamond MD Primary Care Provider [phone] Note from [facility],non-owned Affiliates and Associated Physician Practices is amultiple site organization consisting of ambulatory clinics and hospital sitesin [place], [place], [place] and [place]. This disclosure is being madepursuant to the Care Everywhere program and may not contain all information available regarding this patient. Last updated 18.[facility] Allergies No known active allergies Medications * [...] times daily * vitamin D, ergocalciferol, (DRISDOL) 91226 UNITS capsule(Started 10/12/2018) Take 1 capsule by [...] Comments Blood Pressure 126/80 12/11/2024 2:53 PM [facility] Pulse 66 04/11/2013 9:00 PM CDT Temperature 36.8 C (98.2 F) 04/11/2013 4:42 PM CDT Respiratory Rate 20 04/11/2013 9:00 PM CDT Oxygen Saturation 96% 04/11/2013 9:00 PM CDT Inhaled Oxygen Concentration - - Weight 81.6 kg (180 lb) 12/11/2024 2:53 PM [facility] Height 164 cm (5' 4.57 ) 12/11/2024 2:53 PM [facility] Body Mass Index 30.36 12/11/2024 2:53 PM [facility] Procedures * NON-OB PELVIC SONOGRAM(Performed 12/11/2024) Performed for Ovarian mass * CT ABDOMEN PELVIS W CONTRAST(Performed 11/03/2024) [...] W TSH (TSH,T4,T3 UPTAKE,FTI)(Performed 08/27/2008) Results * NON-OB PELVIC SONOGRAM (12/11/2024 3:25 PM [facility]) Only the most recent of2 resultswithin the [...] the cul de sac. Coding ====== Procedures 72586: US Transvaginal Non OB Onaro PACS Anatomical Region Laterality Modality Other 12/11/2024 3:25 PM [facility] Buck Carreno MD [facility] ORDERABLES * CT ABDOMEN AND PELVIS WITH IV CONTRAST (11/03/2024) Anatomical Region Laterality Modality Abdomen, Pelvis Other 11/03/[address] ORDERABLES * PAP IG LB+HPV APTIMA (09/04/2024 10:09 AM [facility]) Only the most recent of4 resultswithin the time period is included. Diagnosis Comment [facility] INSURANCE BILL Comment: NEGATIVE FOR INTRAEPITHELIAL LESION OR MALIGNANCY. CELLULAR CHANGES ASSOCIATED WITH ATROPHY ARE PRESENT. Specimen Adequacy Comment [facility] INSURANCE BILL Comment: Satisfactory for evaluation. Endocervical component may not be distinguished in cases of atrophy. Clinician Provided ICD10 Comment [facility] INSURANCE BILL Comment:Z01.419 Performed by Comment [facility] INSURANCE BILL Comment:Diamond López, Cytot echnologist (ASCP) [...] UTERINE CERVIX / Unknown 09/04/2024 10:09 AM [facility] 09/04/2024 Comment:Cervix Release to [place] [facility] INSURANCE BILL - 09/11/2024 1:08 PM [facility] Performed at: 01 - [address] [id number] Research Compliance Specialist: Leeann Mcclain MD, Phone: [phone] Performed at: 02 - [address] [id number] Research Compliance Specialist: Leeann Mcclain MD, Phone: [phone] Specimen Comment: [id number] Specimen Comment: No. of containers..01 ThinPrep Vial Buck Carreno MD LAB - PATHOLOGY/CYT OLOGY ORDERABLES [facility] INSURANCE BILL [address] [place] [address] * OCCULT BLOOD FECES 1-3 SCREEN POINT OF CARE (AMB) (09/04/2024 9:36 AM [facility]) Only the most recent of6 resultswithin the time period is included. Occult Blood 1 neg Negative [facility] Occult Blood 2 [facility] Occult Blood 3 [facility] Card Lot Number [facility] Card Exp Date [facility] Developer Lot Number [facility] Developer Expiration Date [facility] QC Negative [facility] QC Positive [facility] Stool STOOL SPECIMEN / Unknown 09/04/2024 9:36 AM [facility] Buck Carreno MD LAB - POINT OF CARE ORDERABLES [facility] [address], [facility] [address] [phone] * MAMMOGRAM (05/12/2024) Anatomical Region Laterality Modality [...] CDT Buck Carreno MD 05/09/2020 3:47 PM [facility] AS400 CONSULTANT VIVIANA BOOK COVERER PELVIC ULTRASOUND Pt. Name: Federica Canales : [...] de Sac: Negative for free fluid CPT: 94291 Parts Classifier comments: Multiple fibroids, 1.9cm, 2.8cm, 0.9cm, 0.6cm [...] no free fluid present in the pelvis. Parts Classifier: Evelia Felix RDMS, RT(R) Images will be scanned into the record. Interpreting Physician: Sarah Carreno Procedure Note Evelia Felix A - 05/09/2020 2:42 PM CDT [facility] AS400 CONSULTANT ARGYLE BOOK COVERER PELVIC ULTRASOUND Pt. Name: Federica Canales : [...] de Sac: Negative for free fluid CPT: 11912 Parts Classifier comments: Multiple fibroids, 1.9cm, 2.8cm, 0.9cm, 0.6cm [...] no free fluid present in the pelvis. Parts Classifier: Evelia Felix RDMS, RT(R) Images will be scanned into the record. Interpreting Physician: Sarah Carreno Buck Carreno MD US ORDERABLES * FSH (04/22/2020 8:06 [...] Resulting Agency Comment [facility]: [facility] [address] [facility] [phone] Buck Carreno MD LAB - CHEMISTRY ORD ERABLES [facility] ACCOUNT BILL [address] [place] [address] * PAP IG LB + HPV HR [...] Resulting Agency Comment Lab Testing performed at: [address] [phone] Buck Carreno MD LAB - PATHOLOGY/CYT OLOGY ORDERABLES [facility] ACCOUNT BILL [address] [place] [address] * URINALYSIS AUTO - POINT OF CARE (AMB) STL (04/12/2020) Clarity UA POCT clear Color UA POCT yellow Leukocyte UA neg Negative Nitrite UA POCT neg Negative Urobilinogen UA 0.2 0.1 - 1.0 Protein UA POCT neg Negative pH UA 5.5 5.0 - 8.0 pH units Blood UA trace Negative Specific [place] UA POCT 1.025 1.002 - 1.030 Ketone [...] LIPID PROFILE W TCHOL/HDL (10/30/2017 10:14 AM [facility]) Cholesterol 212(H) 100 - 199 mg/dL [facility] [...] BLOOD SPECIMEN / Unknown 10/30/2017 10:14 AM [facility] 10/30/2017 Narrative Resulting Agency Comment [facility] [address] [phone] Buck Carreno MD LAB - CHEMISTRY ORD ERABLES [facility] ACCOUNT BILL [address] [place] [address] * VITAMIN D 25-HYDROXY (10/30/2017 10:14 AM [facility]) Only the most recent of3 resultswithin the time period is included. Vitamin D, 25 Hydroxy 58.4 30.0 - 100.0 ng/mL [facility] ACCOUNT BILL Comment: Vitamin D deficiency has been defined by the [place] of Medicine and an Endocrine Society practice guideline as a level of serum 25-OH vitamin D less than 20 ng/mL (1,2). The Endocrine Society went on to further define vitamin D insufficiency as a level between 21 and 29 ng/mL (2). 1. IOM ([place] of Medicine). 2010. Dietary reference intakes for calcium and D. [place]: The National Academies Press. 2. Vicky MF, Starr GOLDSTEIN, Kareem WATKINS, et al. Evaluation, treatment, and prevention of vitamin D deficiency: an Endocrine Society clinical practice guideline. JCEM. 2010; 96(7):1911-30. FASTING Blood BLOOD SPECIMEN / Unknown 10/30/2017 10:14 AM [facility] 10/30/2017 Narrative Resulting Agency Comment [facility] [address] [phone] Buck Carreno MD LAB - CHEMISTRY ORD ERABLES [facility] ACCOUNT BILL [address] [place] [address] * CBC W AUTO DIFFERENTIAL (10/30/2017 10:14 AM [facility]) Only the most recent of7 resultswithin the [...] BLOOD SPECIMEN / Unknown 10/30/2017 10:14 AM [facility] 10/30/2017 Narrative Resulting Agency Comment [facility] [address] [facility] [phone] Buck Carreno MD LAB - HEMATOLOGY OR DERABLES [facility] ACCOUNT BILL [address] [place] [address] * COMPREHENSIVE METABOLIC PANEL (10/30/2017 10:14 AM [facility]) Only the most recent of5 resultswithin the [...] BLOOD SPECIMEN / Unknown 10/30/2017 10:14 AM [facility] 10/30/2017 Narrative Resulting Agency Comment [facility] [address] [facility] [phone] Buck Carreno MD LAB - CHEMISTRY ORD ERABLES Performing Organization Address City/[facility] de Phone Number [facility] ACCOUNT BILL [address] [place] [address] * TSH (10/30/2017 10:14 AM [facility]) Only the most recent of3 resultswithin the time period is included. TSH 1.100 0.450 - 4.500 uIU/mL [facility] ACCOUNT BILL Comment:FASTING Blood BLOOD SPECIMEN / Unknown 10/30/2017 10:14 AM [facility] 10/30/2017 Narrative Resulting Agency Comment [facility] [address] [facility] [phone] Buck Carreno MD LAB - CHEMISTRY ORD ERABLES Performing Organization Address City/State/[facility] Co de Phone Number [facility] ACCOUNT BILL [address] [place] [address] * MAMMO SCREENING BILATERAL (12/18/2016) Anatomical Region Laterality Modality Breast Mammography Scanned Document MAMMO ORDERABLES * HEMOGLOBIN A1C (06/21/2013 9:05 AM CDT) Hemoglobin A1c 5.0 4.2 - 6.3 % 06/21/2013 10:27 AM CDT [facility] Estimated Average Glucose 97 mg/dL 06/21/2013 10:27 AM T [facility] Whole Blood BLOOD SPECIMEN / Unknown Lab Venipuncture / Unknown 06/21/2013 9:05 AM CDT 06/21/2013 9:31 AM CDT Provider Unknown LAB - CHEMISTRY ROWENA JHA [facility] [address] [place] [address] * BASIC METABOLIC PANEL (CALCIUM TOTAL) (06/21/2013 9:05 AM CDT) Glucose 90 74 - 106 mg/dL 06/21/2013 10:01 AM [facility] Sodium 141 136 - 145 mmol/L 06/21/2013 10:01 AM [facility] Potassium 4.3 3.5 - 5.1 mmol/L 06/21/2013 10:01 AM [facility] Chloride 106 98 - 107 mmol/L 06/21/2013 10:01 AM [facility] CO2 27 22 - 31 mmol/L 06/21/2013 10:01 AM [facility] Calcium 8.5 8.5 - 10.1 mg/dL 06/21/2013 10:01 AM [facility] Anion Gap 8 5 - 15 mmol/L 06/21/2013 10:01 AM [facility] BUN 10 7 - 21 mg/dL 06/21/2013 10:01 AM [facility] Creatinine 0.60 0.50 - 1.30 mg/dL 06/21/2013 10:01 AM [facility] eGFR by MDRD >60 >60 ml/min/1.7 3m2 06/21/2013 10:01 AM [facility] eGFR by MDRD >60 >60 ml/min/1.7 3m2 06/21/2013 10:01 AM [facility] Blood BLOOD SPECIMEN / Unknown Lab Venipuncture / Unknown 06/21/2013 9:05 AM CDT 06/21/2013 9:31 AM CDT Provider Unknown LAB - CHEMISTRY ORDE RABLES Performing Organization Address City/[facility] Co de Phone Number [facility] [address] [place] [address] * LDL CHOLESTEROL (06/21/2013 9:05 AM CDT) LDL Direct 111 <130 mg/dL 06/21/2013 10:01 AM CDT [facility] Blood BLOOD SPECIMEN / Unknown Lab Venipuncture / Unknown 06/21/2013 9:05 AM CDT 06/21/2013 9:31 AM CDT Provider Unknown LAB - CHEMISTRY ORDE ABHIJEET Performing Organization Address [facility] Co de Phone Number [facility] [address] [place] [address] * LIPID PROFILE (06/21/2013 9:05 AM CDT) Only the most recent of5 resultswithin the time period is included. Cholesterol 179 <200 mg/dL 06/21/2013 10:01 AM CDT [facility] Triglycerides 84 <150 mg/dL 06/21/2013 10:01 AM CDT [facility] HDL Cholesterol 57 >40 mg/dL 3 10:01 AM CDT [facility] LDL Calculated 105 <130 mg/dL 06/21/2013 10:01 AM CDT [facility] VLDL Calculated 17 <=30 mg/dL 3 10:01 AM CDT [facility] Chol HDL Ratio 3.1 <4.5 06/21/2013 10:01 AM CDT [facility] Blood BLOOD SPECIMEN / Unknown Lab Venipuncture / Unknown 06/21/2013 9:05 AM CDT 06/21/2013 9:31 AM CDT Provider Unknown LAB - CHEMISTRY ORDE ABHIJEET Performing Organization Address [facility] Co de Phone Number [facility] [address] [place] [address] * CT CHEST PE (04/11/2013 8:18 PM [...] Yellow, Dark Yellow 04/11/2013 6:59 PM CDT [facility] Clarity UA Clear 04/11/2013 6:59 PM CDT [facility] Specific [place] UA 1.021 1.005 - 1.030 04/11/2013 6:59 PM CDT [facility] pH UA 6.0 5.0 - 8.0 04/11/2013 6:59 PM CDT [facility] Protein UA Negative Negative 04/11/2013 6:59 PM CDT [facility] Blood UA Negative Negative 04/11/2013 6:59 PM CDT [facility] Leukocyte UA 1+(A) Negative 04/11/2013 6:59 PM CDT [facility] Nitrite UA Negative Negative 04/11/2013 6:59 PM CDT [facility] Glucose UA Negative Negative 04/11/2013 6:59 PM CDT [facility] Ketone UA Negative Negative 04/11/2013 6:59 PM CDT [facility] Bilirubin UA Negative Negative 04/11/2013 6:59 PM CDT [facility] Urobilinogen UA 0.2 0.1 - 1.0 EU/dL 04/11/2013 6:59 PM CDT [facility] WBC UA Auto 2-5 0-2, 2-5 #/hpf 04/11/2013 6:59 PM CDT [facility] RBC UA Auto 0-2 0-2, 2-5 #/hpf 04/11/2013 6:59 PM CDT [facility] Epithelial Cell UA Auto 5-10(A) 0-2, 2-5 #/hpf 04/11/2013 6:59 PM CDT [facility] Bacteria UA Auto None seen None seen 04/11/20 13 6:59 PM CDT [facility] Hyaline Casts UA Auto 0-2 0 - 2 #/lpf 04/11/2013 6:59 PM CDT [facility] Urine specimen (specimen) URINE SPECIMEN OBTAINED BY CLEAN CATCH PROCEDURE / Unknown 04/11/2013 6:50 PM CDT 04/11/2013 6:51 PM CDT Edmar Trejo MD LAB - URINALYSIS O RDERABLES [facility] [address] [place] [address] * XR CHEST PA AND LATERAL (04/11/2013 6:40 PM CDT) Anatomical Region Laterality Modality Chest Radiographic Krys ging 04/11/2013 7:05 PM CDT Impressions 04/11/2013 7:05 PM CDT No acute disease Narrative 04/11/2013 7:05 PM CDT Chest two views INDICATION: Chest pain FINDINGS: The heart size is normal and the lungs are clear and no pneumothorax or pleural effusion is seen. Procedure Note Ulises Brice MD - 04/11/2013 Chest two views INDICATION: [...] OF CAR E ORDERABLES [facility] [address] [place] [address] * HCG URINE QUALITATIVE (04/11/2013 5:19 PM CDT) hCG Qualitative Urine Negative Negative 04/11/2013 5:32 PM CDT [facility] Urine specimen (specimen) URINE / Unknown 04/11/2013 5:19 PM CDT 04/11/2013 5:25 PM CDT Jesse FELICIANO LAB - URINALYSIS ORD ERABLES Performing Organization Address City/[facility]/ZIP Co de Phone Number [facility] [address] [place] [address] * EKG 12-LEAD (04/11/2013 4:52 PM CDT) Ventricular Rate 66 BPM [facility] Atrial Rate 66 BPM [facility] P-R Interval 144 ms [facility] QRS Duration ms 88 ms [facility] Q-T Interval ms 426 ms [facility] QTC Calculation (Bezet) 446 ms [facility] Calculated P [place] 77 degrees [facility] Calculated R [place] 49 degrees [facility] Calculated T [place] 40 degrees [facility] Interpretation EKG Normal sinus rhythm Poor R-wave progression Abnormal ECG No previous ECGs available Confirmed by CLAY BYRD, LOLA ([id number]) on 04/12/2013 8:40:28 AM [facility] 04/11/2013 4:52 PM CDT 04/12/2013 8:40 AM CDT Narrative [facility] - 04/12/2013 8:41 AM CDT Procedure Note Document, Scanned - 04/12/2013 7:08 AM CDT Transcriptions Document, Scanned - 04/12/2013 8:41 AM CDT Edmar Trejo MD ECG ORDERABLES Performing Organization Address City/[facility]/ZIP Co de Phone Number [facility] * VITAMIN B12 (01/05/2012 8:46 AM CDT) Vitamin B12 424 211 - 946 pg/mL [facility] ACCOUNT BILL Blood specimen (specimen) BLOOD SPECIMEN / Unknown 01/05/2012 8:46 AM CDT 01/05/2012 1:24 PM CDT Narrative Resulting Agency Comment [facility] [address] [phone] Nallely Bonds MD LAB - CHEMISTRY ROWENA JHA [facility] ACCOUNT BILL * NM HEPATOBILIARY FUNCTION [...] antrum, biopsy -- Mild chronic inflammation MC/na [employer] na Pathologist Lisa Goode MD [employer]. 05/18/2011 1215 <1> CPT code 44562 MISCELLANEOUS SAMPLES / Unknown 05/15/2011 1:30 PM CDT 05/15/2011 3:58 PM CDT Historical Provider LAB - PATHOLOGY/C YTOLOGY ORDERABLES * HELICOBACTER PYLORI UREASE (05/15/2011 1:30 PM CDT) Helicobacter pylori Urease Initial Negative Negative [facility] Helicobacter pylori Urease Final Negative Negative [facility] Miscellaneous samples (specimen) GASTRIC ANTRAL BIOPSY SPECIMEN / Unknown 05/15/2011 1:30 PM CDT 05/15/2011 3:58 PM CDT Raysa Cruz MD LAB - MICROBIOLOG Y ORDERABLES [facility] [address] [place] [address] * ENDOSCOPY ORDER (05/15/2011) 05/15/2011 Narrative Procedure Note Raysa Cruz MD - 05/15/2011 1:17 PM CDT [facility] [address] [place] [address] Endoscopy Note PATIENT NAME: FEDERICA CANALES [facility]#: [id number] AGE: 40ACCT#: [id number] DATE OF ADMISSION: 05/15/2011DOB: 1970 DATE OF PROCEDURE: 05/15/2011ROOM#: PROCEDURE: Gastroscopy. INTEGRATED CIRCUIT IC LAYOUT DESIGNER: Raysa Cruz M.D. PREOPERATIVE DIAGNOSIS: Epigastric abdominal [...] and fundus. The endoscope then straightened. Biopsies q6ztyhtuse in the antrum, 2 biopsies for ISIDRO-test. The endoscope waswithdrawn. The patient tolerated the procedure well. RECOMMENDATIONS: Await tissue results. cc:Eugenio Kang M.D. NAME: FEDERICA CANALES DICTATOR:RAYSA CRUZ M.D. DICTATED FOR: [facility]/[id number] JOB ID: [id number] Endoscopy Note Raysa Cruz MD GI PROCEDURE [...] PM CDT Narrative Resulting Agency Comment [facility] [address] [phone] Eugenio Kang MD LAB - CHEMISTRY ROWENA JHA [facility] ACCOUNT BILL * VITAMIN B12 FOLATE PANEL (06/16/2010 4:32 PM CDT) Vitamin B12 359 211 - 946 pg/mL [facility] ACCOUNT BILL Folate >19.9 >3.0 ng/mL [facility] ACCOUNT BILL Comment: Indeterminate: 2.2 - 3.0 Deficient: <2.2 BLOOD SPECIMEN / Unknown 06/16/2010 4:32 PM CDT 06/16/2010 9:24 PM CDT Narrative Resulting Agency [facility] [address] [facility] [phone] Eugenio Kang MD LAB - CHEMISTRY ROWENA JHA [facility] ACCOUNT BILL * (ABNORMAL) PROLACTIN (12/19/2009 2:16 PM [facility]) Only the most recent of2 resultswithin the time period is included. Prolactin 23.4(H) 4.8 - 23.3 ng/mL [facility] ACCOUNT BILL BLOOD SPECIMEN / Unknown 12/19/2009 2:16 PM [facility]IL[facility] AIDE CL[facility]SR[facility]OM 12/19/2009 9:09 PM [facility] A[facility] CLAS[facility]OM Narrative Resulting Agency Comment [facility] [address] [phone] Eugenio Kang MD LAB - CHEMISTRY ROWENA JHA [facility] ACCOUNT BILL * FSH + LH PANEL (12/19/2009 2:16 PM [facility]IL[facility] A[facility] CLASSR[facility]) Only the most recent of2 resultswithin the [...] BLOOD SPECIMEN / Unknown 12/19/2009 2:16 PM [facility]IL[facility] AIDE CLASSR[facility]OM 12/19/2009 9:09 PM [facility] A[facility] CLAS[facility] Narrative Resulting Agency Comment [facility] [address] [facility] [phone] Eugenio Kang MD LAB - CHEMISTRY ROWENA JHA Performing Organization Address [facility] de Phone Number [facility] ACCOUNT BILL * THYROID PANEL W TSH (08/27/2008 3:40 PM [facility]IL[facility] CL[facility]) TSH 1.508 0.450 - 4.500 uIU/mL [facility] INSURANCE BILL T4 Total 7.3 4.5 - 12.0 ug/dL [facility] INSURANCE BILL T3 Uptake 25 24 - 39 % [facility] INSURANCE BILL Free Thyroxine Index 1.8 1.2 - 4.9 [facility] INSURANCE BILL 08/27/2008 3:40 PM [facility] 08/27/2008 9:19 PM [facility] Narrative Resulting Agency Comment [facility] [address] [facility] [phone] Eugenio Kang MD LAB - CHEMISTRY ROWENA JHA Performing Organization Address [facility] Co de Phone Number [facility] INSURANCE BILL * MARBELLA BLOOD SCREEN (08/27/2008 3:40 PM [facility]) MARBELLA Direct 37 0 - 99 AU/mL [facility] INSURANCE BILL Comment: Negative <100 Equivocal 100 - 120 Positive >120 08/27/2008 3:40 PM [facility] 08/27/2008 9:19 PM [facility] Narrative Resulting Agency Comment [facility] [address] [facility] [phone] Eugenio Kang MD LAB - CHEMISTRY ROWENA JHA Performing Organization Address City/[facility] Co de Phone Number [facility] INSURANCE BILL * SED RATE WESTERGREN AUTO (08/27/2008 3:40 PM [facility]) Erythrocyte Sedimentation Rate Westergren 8 0 - 20 mm/hr [facility] INSURANCE BILL 08/27/2008 3:40 PM [facility] 08/27/2008 9:19 PM [facility] Narrative Resulting Agency Comment [facility] [address] [phone] Eugenio Kang MD LAB - HEMATOLOGY ORD ERABLES [facility] INSURANCE BILL Care Teams Garment Worker Relationship Specialty Start Date End Date Alfredo Diamond MD [address] [place] [address] PCP - General Internal Medicine 07/18/21
--- OUTSIDE RECORDS SUMMARY | 2024-12-15 10:14 | XMS_ITS | Encounter Summary ---
Author Organization [facility] Address [address] [place] [address] Care Team Providers Care Manager Completions Name Role Phone Unavailable Primary Care Provider Unavailabl e Encounter Details Date Type Department Care Team (Late st Contact Info) Description 04/25/2001 Outpatient Historical [facility] Health [facility] [address] [facility] [address] [address] Juan Hector MD [address] [place] [address] Social History Tobacco Use Types Packs/Day Years Used Date Smoking Tobacco: Never Assessed Comments Unknown Sex and Gender Information Value Date Recorded Sex Assigned at Not on file Legal Sex Female 3:56 AM INTERIOR DESIGN PRINCIPAL Gender Identity Not on file Sexual Orientation Not on file documented as of this encounter Plan of Treatment Not on file documented as of this encounter Visit Diagnoses Not on filedocumented in this encounter
--- OUTSIDE RECORDS SUMMARY | 2024-12-15 10:14 | XMS_ITS | Encounter Summary ---
Author Organization [facility] Address [address] [place] [address] Care Team Providers Care Mergers And Acquisitions Consultant Name Role Phone Unavailable Primary Care Provider Unavailabl e Encounter Details Date Type Department Care Team (Late st Contact Info) Description 07/07/1999 Outpatient Historical [facility]'s Health [facility] [address] [facility] [address] [address] Juan Hector MD [address] [place] [address] Social History Tobacco Use Types Packs/Day Years Used Date Smoking Tobacco: Never Assessed Comments Unknown Sex and Gender Information Value Date Recorded Sex Assigned at Not on file Legal Sex Female 3:56 AM TRANSITIONS RN CARE COORDINATOR Gender Identity Not on file Sexual Orientation Not on file documented as of this encounter Plan of Treatment Not on file documented as of this encounter Visit Diagnoses Not on filedocumented in this encounter
--- OUTSIDE RECORDS SUMMARY | 2024-12-15 10:14 | XMS_ITS | Encounter Summary ---
Author Organization [facility] Address [address] [place] [address] Care Team Providers Care Carroting Machine Operator Name Role Phone Unavailable Primary Care Provider Unavailabl e Encounter Details Date Type Department Care Team (Late st Contact Info) Description 07/25/2001 Outpatient Historical [facility] Health [facility] [address] [facility] [address] [address] Juan Hector MD [address] [place] [address] Social History Tobacco Use Types Packs/Day Years Used Date Smoking Tobacco: Never Assessed Comments Unknown Sex and Gender Information Value Date Recorded Sex Assigned at Not on file 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
--- OUTSIDE RECORDS SUMMARY | 2024-12-15 10:14 | XMS_ITS | Clinical Summary ---
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
--- OUTSIDE RECORDS SUMMARY | 2024-12-15 10:14 | XMS_ITS | Encounter Summary ---
Author Organization [facility] Address [address] [place] [address] Care Team Providers Care Java Enterprise Architect Name Role Phone Unavailable Primary Care Provider Unavailabl e Encounter Details Date Type Department Care Team (Late st Contact Info) Description 05/06/2001 Outpatient Historical [facility]'s Health [facility] [address] [facility] [address] [address] Juan Hector MD [address] [place] [address] Social History Tobacco Use Types Packs/Day Years Used Date Smoking Tobacco: Never Assessed Comments Unknown Sex and Gender Information Value Date Recorded Sex Assigned at Not on file 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
--- OUTSIDE RECORDS SUMMARY | 2024-12-15 10:14 | XMS_ITS | Encounter Summary ---
Author Organization [facility] Address [address] [place] [address] Care Team Providers Care Movement Education Specialist Name Role Phone Unavailable Primary Care Provider Unavailabl e Encounter Details Date Type Department Care Team (Late st Contact Info) Description 08/28/1999 Outpatient Historical [facility] Health [facility] [address] [facility] [address] [address] Juan Hector MD [address] [place] [address] Social History Tobacco Use Types Packs/Day Years Used Date Smoking Tobacco: Never Assessed Comments Unknown Sex and Gender Information Value Date Recorded Sex Assigned at Not on file 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
--- OUTSIDE RECORDS SUMMARY | 2024-12-15 10:14 | XMS_ITS | Clinical Summary ---
Author Organization 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 Gender Identity Not on file Sexual Orientation [...] 03/22/2018 2:05 PM CDT Plan of Treatment Health Maintenance Due Date Last Done Comments Colon Cancer Screening-Colonoscopy 1970 Depression Screening 1970 Hepatitis C Screening 1968 DTaP/Tdap/Td Vaccine (1 - Tdap) 1979 Hepatitis B Screening 1986 Regular Well Visit/Exam 18-64 1986 Zoster Vaccine (1 of 2) 2018 Breast Cancer Screening-Mammogram 01/05/2020 01/04/2019, 12/18/2016, 09/07/2014, Additional history exists Influenza Vaccine (#1) 2024 Pneumococcal vaccine <65 Aged Out No longer eligible based on [...] compared to prior imaging studies performed at [facility] on 11/11/2012, 09/07/2014 and 12/18/2016. The breasts [...] compared to prior imaging studies performed at [facility] on 11/11/2012, 09/07/2014 and 12/18/2016. The breasts are heterogeneously dense, which may obscure small masses. There are bilateral sub-glandular saline implants. There is no suspicious abnormality in either breast. Impression: Annual screening mammography is recommended. OVERALL FINAL ASSESSMENT: BI-RADS CATEGORY 1: Negative. Buck Carreno MD IMG MAMMO PROCEDURES Final Result from Last 3 Months or Most Recently Relevant to Health Maintenance Insurance [facility] Address: [place] [address] CHOICE PLUS [facility]/PPO Address: [id number] [place] [address] OPEN ACCESS Care Teams Court Recording Monitor Relationship Specialty Start Date End Date Jh Mckenzie NP [address] [place] [address] PCP - General Nurse Practitioner 11/06/24
== END 2024-12-15 09:35 | disposition home or self-care (01) ==
PROVIDERS: PCP Nurse Practitioner; Visit Provider Nurse Practitioner
DX: R07.9 Chest pain, unspecified (principal)
CPT/HCPCS: 78452; 93017; A9502; J2785

== ENCOUNTER 2025-03-14 13:47 | Outpatient (CLI) | payer OTHER, SELFPAY ==
--- NOTE | ~2025-03-14 | CT_ITS ---
Clinical Indication: Chest pain CT Scan of the Chest with Contrast: Technique: Contiguous sections were acquired throughout the chest after intravenous administration of 100 cc of Omnipaque 350. Dose reduction technique was used on this scan by utilizing automated expos ure control and iterative reconstruction technique. The dose-length product (DLP) was 299.10 mGy-cm. Findings: There is no evidence of any significant mediastinal, hilar or axillary lymphadenopathy. There is no f illing defect in the pulmonary arterial tree to suggest pulmonary embolus. There is no evidence of ao rtic dissection or aneurysm. There is no evidence of pleural or pericardial effusion. The lungs are clear. No pulmonary nodules or infiltrates are noted. Images through the upper abdomen reveal no abnormalities. Impression: No evidence of pulmonary embolus, aortic dissection, or aortic aneurysm. Clear lungs. Reviewed, dictated and finalized at [facility]. Impression: No evidence of pulmonary embolus, aortic dissection, or aortic aneurysm. Clear lungs.
== END 2025-03-14 13:48 | disposition home or self-care (01) ==
LOC: MICIMG 13:48
PROVIDERS: PCP Nurse Practitioner; Visit Provider Internal Medicine Cardiovascular Disease
DX: R05.8 Other specified cough (principal); R07.81 Pleurodynia
CPT/HCPCS: 71275; Q9967

== ENCOUNTER 2025-06-08 08:59 | Outpatient (CLI) | payer OTHER, SELFPAY ==
--- NOTE | ~2025-06-08 | MM_ITS ---
EXAMINATION: MM scrn angelo implant BI w nara HISTORY: Screening mammogram TECHNIQUE: Craniocaudal and mediolateral oblique 3-D tomosynthesis images with implant displacement a nd synthetic 2-D images were generated. Craniocaudal and mediolateral oblique views of the breasts wi thout implant displacement were obtained using full field digital mammography. CAD analysis was submi tted and interpreted. COMPARISON: Comparison to multiple prior studies sequentially, with oldest reviewed study dated 06/2021. BREAST PARENCHYMAL COMPOSITION: Dense: The breasts are heterogeneously dense, which may obscure small masses FINDINGS: There is no evidence of suspicious mass, calcification, or architectural distortion to sugg est malignancy in either breast. There has been no suspicious interval change. IMPRESSION: 1. No mammographic evidence of malignancy. 2. Recommend routine screening mammography in one year. BI-RADS Category 1: Negative Reviewed, dictated and finalized at location A.
--- OUTSIDE RECORDS SUMMARY | 2025-06-08 09:06 | XMS_ITS | Clinical Summary ---
Author Organization [facility] Address [address] [place] [address] Care Team Providers Care Rn Postpartum Name Role Phone Alfredo Diamond MD Primary Care Provider [phone] Source Comments [facility],non-owned Affiliates and Associated Physician Practices is amultiple site organization consisting of ambulatory clinics and hospital sitesin [place], [place], [place] and [place]. This disclosure is being madepursuant to the Care Everywhere program and may not contain all information available regarding this patient. Last updated 18.[facility] Allergies No known active allergies Medications * Be aware that medications may not be up to date on this document. Alwaysverify current medications with the patient. tretinoin (RETIN-A) 0.1 % cream Apply to [...] times daily Active vitamin D, ergocalciferol, (DRISDOL) 24802 UNITS capsule Take 1 capsule by mouth every 7 days 13 capsule 1 10/12/2018 Active biotin 5 MG tablet Take 1 (one) tablet by mouth once daily Active norethindrone-e thinyl estradiol (Femhrt 10/29) 1-5 MG-MCG tabletIndicatio ns:Menopausal symptoms Take 1 (one) tablet by mouth once daily 84 tablet 3 09/04/2024 Active Active Problems Problem Noted Date Diagnosed Date Musculoskeletal pain 04/11/2013 Vitamin D deficiency 02/08/2012 Weight gain 01/10/2012 Cold hands 01/10/2012 Fatigue 01/10/2012 Hair thinning 01/10/2012 Screening for cervical cancer 01/10/2012 Overview (01/10/2012): Pap/pelvic done by ELECTRIC ORGAN ASSEMBLER AND CHECKER 07/2011 told ok GERD (gastroesophageal reflux disease) Resolved Problems Problem Noted Date Diagnosed Date Resolved Date Elevated BP 01/10/2012 02/08/2012 Generalized headaches 2011 Family History Medical History Relation Name Comments [...] Recorded Patient Health Questionnaire-2 Score 0 12/11/2024 Comments No Sex and Gender Information Value Date Recorded Sex Assigned at Not on file Legal Sex Female 6:58 AM STATION CHIEF Gender Identity Not on file Sexual Orientation Not on file Last Filed Vital Signs Vital Sign Reading Time Taken Comments Blood Pressure 126/80 12/11/2024 2:53 PM STATION CHIEF Pulse 66 04/11/2013 9:00 PM CDT Temperature 36.8 C (98.2 F) 04/11/2013 4:42 PM CDT Respiratory Rate 20 04/11/2013 9:00 PM CDT Oxygen Saturation 96% 04/11/2013 9:00 PM CDT Inhaled Oxygen Concentration - - Weight 81.6 kg (180 lb) 12/11/2024 2:53 PM STATION CHIEF Height 164 cm (5' 4.57) 12/11/2024 2:53 PM STATION CHIEF Body Mass Index 30.36 12/11/2024 2:53 PM STATION CHIEF Plan of Treatment Health Maintenance Due Date [...] COVID-19 VACCINE ( season) 2024 02/25/2021, 02/01/2021 MAMMOGRAM 05/12/2025 05/12/2024, 04/24 (Done Outside Per Report), 03/17/2022, Additional history exists INFLUENZA VACCINE (#1) 2025 08/04/2018 PAP with HPV 09/04/2029 09/04/2024, 07/27, 07/24/2022, Additional history exists DEPRESSION SCREENING Completed 12/11/2024, 08/23/2023, 07/24/2022 HIB VACCINE Aged Out No longer eligi ble based on patient's age to complete this topic HPV VACCINE Aged Out No longer eligi ble based on patient's age to complete this topic MENINGOCOCCAL (Group B) VACCINE SHARED DECISION-MAKING Aged Out No longer eligible based on patient's age to complete this topic MENINGOCOCCAL GROUPS A/C/Y/W VACCINE Aged Out No longer eligible based on patient's age to complete this topic Procedures Procedure Name Priority Date/Time Associated Diagnosis Comments PAP IG LB+HPV APTIMA Routine 09/04/2024 10:09 AM STATION CHIEF Well woman exam MAMMOGRAM 05/12/2024 COMPREHENSIVE METABOLIC PANEL Routine 10/30/2017 10:14 AM STATION CHIEF Well woman exam LIPID PROFILE W TCHOL/HDL Routine 10/30/2017 10:14 AM STATION CHIEF Well woman exam from Last 3 Months or Most Recently Relevant to Health Maintenance Results * PAP IG LB+HPV APTIMA (09/04/2024 10:09 AM STATION CHIEF) Diagnosis Comment [facility] INSURANCE BILL Comment: NEGATIVE FOR INTRAEPITHELIAL LESION OR MALIGNANCY. CELLULAR CHANGES ASSOCIATED WITH ATROPHY ARE PRESENT. Specimen Adequacy Comment [facility] INSURANCE BILL Comment: Satisfactory for evaluation. Endocervical component may not be distinguished in cases of atrophy. Clinician Provided ICD10 Comment [facility] INSURANCE BILL Comment:Z01.419 Performed by Comment [facility] INSURANCE BILL Comment:Diamond López, Cytot echnologist (ASCP) Comment . [facility] INSURANCE BILL Note Comment [facility] INSURANCE BILL Comment: The Pap smear is a screening test designed to aid in the detection of premalignant and malignant conditions of the uterine cervix. It is not a diagnostic procedure and should not be used as the sole means of detecting cervical cancer. Both false-positive and false-negative reports do occur. [facility] CPT Code Automation Comment [facility] INSURANCE BILL Comment: This liquid based ThinPrep(R) pap test was screened with the use of an image guided system. Human papillomavirus Aptima Negative Negative [facility] INSURANCE BILL Comment: This nucleic acid amplification test detects fourteen high-risk HPV types (16,18,31,33,35,39,45,51,52,56,58,59,66,68) without differentiation. Pathology/Cytolog y PART OF UTERINE CERVIX / Unknown 09/04/2024 10:09 AM STATION CHIEF 09/04/2024 Comment:Cervix Release to román Del Rio [facility] INSURANCE BILL - 09/11/2024 1:08 PM STATION CHIEF Performed at: [address] [place], [place] [address]K[place]em [place] [id number] Executive Creative Director: Leeann Mcclain MD, Phone: [phone] Performed at: 02 - [facility] [place], [place] [id number] Executive Creative Director: Leeann Mcclain MD, Phone: [phone] Specimen Comment: [id number] Specimen Comment: No. of containers..01 ThinPrep Vial us Buck Carreno MD LAB - PATHOLOGY/CYTOLOGY OR DERABLES Final Result [facility] INSURANCE BILL [address] [place] [address] * MAMMOGRAM (05/12/2024) Anatomical Region Laterality Modality Other 05/12/2024 Narrative 05/12/2024 Ordered by an unspecified provider. us Scanned Document SCANNING ONLY Final Result * (ABNORMAL) LIPID PROFILE W TCHOL/HDL (10/30/2017 10:14 AM STATION CHIEF) Cholesterol 212(H) 100 - 199 mg/dL [facility] [...] BLOOD SPECIMEN / Unknown 10/30/2017 10:14 AM STATION CHIEF 10/30/2017 Narrative Resulting Agency Comment [facility] [address] [facility] [id number] us Buck Carreno MD LAB - CHEMISTRY ORDERABLES Final Result [facility] ACCOUNT BILL [address] [place] [address] * COMPREHENSIVE METABOLIC PANEL (10/30/2017 10:14 AM STATION CHIEF) Glucose 86 65 - 99 mg/dL [facility] [...] BLOOD SPECIMEN / Unknown 10/30/2017 10:14 AM STATION CHIEF 10/30/2017 Narrative Resulting Agency Comment [facility] [address] [facility] [phone] Buck Carreno MD LAB - CHEMISTRY ORDERABLES Final Result [facility] ACCOUNT BILL [address] [place] [address] from Last 3 Months or Most Recently Relevant to Health Maintenance Insurance [facility] Address: [address] [address] [place] [address] [facility] Care Teams Rn Postpartum Relationship Specialty Start Date End Date Alfredo Diamond MD [address] [place] [address] PCP - General Internal Medicine 07/18/21
--- OUTSIDE RECORDS SUMMARY | 2025-06-08 09:06 | XMS_ITS | Continuity of Care Document ---
Author Organization [facility] Address [address] [place] [address] utive [facility] [address] [place] [address] Phone Care Team Providers Care Infusion Rn Name Role Phone Preston Salamancahil Unavailable Unavailable Procedures Procedure Date Eye Exam, New Patient Advance Directives Directive Yes / No Effective Date File Name No Information Encounters Encounter Description Practice Location Reason(s) For Visit Diagnoses Date Provider Providers Copied on Encounter [facility], [address] [place] [address] [address], [place], [place], [id number], [place] tel:[phone] [facility] No Information [address] [facility] [address], [place], [address], [place]. tel:[phone] Family History Family Member Type Diagnosis Age [...]
--- OUTSIDE RECORDS SUMMARY | 2025-06-08 09:06 | XMS_ITS | Encounter Summary ---
Author Organization [facility] Address [address] [place] [address] Care Team Providers Care Coding Team Lead Name Role Phone Unavailable Primary Care Provider Unavailabl e Encounter Details Date Type Department Care Team (Late st Contact Info) Description 07/25/2001 Outpatient Historical [facility] Health [facility] [address] [facility] [address] [address] Juan Hector MD [address] [place] [address] Social History Tobacco Use Types Packs/Day Years Used Date Smoking Tobacco: Never Assessed Comments Unknown Sex and Gender Information Value Date Recorded Sex Assigned at Not on file Legal Sex Female 3:56 AM WIG 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
--- OUTSIDE RECORDS SUMMARY | 2025-06-08 09:06 | XMS_ITS | Encounter Summary ---
Author Organization [facility] Address [address] [place] [address] Care Team Providers Care Historic Clothing And Costume Maker Name Role Phone Unavailable Primary Care Provider Unavailabl e Encounter Details Date Type Department Care Team (Late st Contact Info) Description 04/29/2001 Outpatient Historical [facility] Health [facility] [address] [facility] [address] [address] Juan Hector MD [address] [place] [address] Social History Tobacco Use Types Packs/Day Years Used Date Smoking Tobacco: Never Assessed Comments Unknown Sex and Gender Information Value Date Recorded Sex Assigned at Not on file 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
--- OUTSIDE RECORDS SUMMARY | 2025-06-08 09:06 | XMS_ITS | Clinical Summary ---
Author Organization [facility] Address [address] [place] [address] Care Team Providers Care Signal Tower Operator Name Role Phone Jh Mckenzie NP Primary Care Provider [phone] Allergies No known active allergies Medications multivitamin capsule Take 1 capsule by mouth daily Active calcium carbonate-vitam in D3 1,500 mg (600mg elemental) -800 unit per tablet Take 1 tablet by mouth daily Active vitamin E 400 unit capsule Take 1 capsule (400 Units total) by mouth daily Active norethindrone ac-eth estradioL (FEMHRT 10/29) 1-5 mg-mcg tablet Take 1 tablet by mouth daily 09/04/2024 Active ginkgo biloba 40 mg tablet Take by mouth daily Active turmeric root extract 500 mg capsule Take by mouth Active cholecalciferol (VITAMIN D-3) 2000 unit tablet Active biotin 5 mg capsule 1 capsule (1 tablet total) Active magnesium gluconate (MAGONATE) 500 mg (27 mg elemental) tabletIndicatio ns:hypomagnesem ia Active BMOG-2WZH-ilowg qzj-qnfd-ub-min 01-82-68-150 mg capsule Take by mouth Active Active Problems Problem Noted Date Diagnosed Date Obesity (BMI 30.0-34.9) 02/22/2025 Pleuritic chest pain 02/22/2025 Dry cough 01/20/2018 Hyperlipidemia LDL goal <130 01/20/2018 Elevated blood pressure reading 01/20/2018 Atypical chest pain 01/20/2018 DENIS (dyspnea on exertion) 01/20/2018 Encounters Date Type Department Care Team Description 03/23/2025 Telephone [facility] Cardiology [address] [place] [address] Herbert Barr MD from Last 3 Months Surgical History Surgery Date Site/Laterality Comments HYSTERECTOMY [...] on file Legal Sex Female 2:56 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 Gender Identity Not on file Sexual Orientation Not on file Obstetrics History Last Filed Vital Signs Vital Sign Reading Time Taken Comments Blood Pressure 126/74 02/22/2025 7:55 AM CDT Pulse 87 02/22/2025 7:55 AM CDT Temperature - - Respiratory Rate - - Oxygen Saturation 97% 02/22/2025 7:55 AM CDT Inhaled Oxygen Concentration - - Weight 85.3 kg (188 lb) 02/22/2025 7:55 AM CDT Height 167.6 cm (5' 6) 02/22/2025 7:55 AM CDT Body Mass Index 30.34 02/22/2025 7:55 AM CDT Plan of Treatment Health Maintenance Due Date Last Done Comments Colon Cancer Screening-Colonoscopy 1968 Depression Screening 1970 Hepatitis C Screening 1968 DTaP/Tdap/Td Vaccine (1 - Tdap) 1979 Hepatitis B Screening 1986 Regular Well Visit/Exam 18-64 1986 Pneumococcal vaccine <65 (1 of 2 - PCV) 1987 Zoster Vaccine (1 of 2) 2018 Breast Cancer Screening-Mammogram 03/17/2023 03/17/2022, 01/31/2021, 01/04/2019, Additional history exists Covid-19 Vaccine (2023-2 5 season) 2024 10/12/2021, 02/25/2021, 02/01/2021 Influenza Vaccine (#1) 2025 08/04/2018 Procedures Procedure Name Priority Date/Time Associated Diagnosis [...] compared to prior imaging studies performed at [facility] on 11/11/2012, 09/07/2014 and 12/18/2016. The breasts [...] compared to prior imaging studies performed at [facility] on 11/11/2012, 09/07/2014 and 12/18/2016. The breasts [...] Health Maintenance Insurance CHOICE PLUS CHOICE PLUS [employer] Care Teams Signal Tower Operator Relationship Specialty Start Date End Date Jh Mckenzie NP [address] [place] [address] PCP - General Nurse Practitioner 11/06/24
--- OUTSIDE RECORDS SUMMARY | 2025-06-08 09:06 | XMS_ITS | Encounter Summary ---
Author Organization [facility] Address [address] [place] [address] Care Team Providers Care Manager User Experience Name Role Phone Unavailable Primary Care Provider Unavailabl e Encounter Details Date Type Department Care Team (Late st Contact Info) Description 05/24/2000 Outpatient Historical [facility]'s Health [facility] [address] [facility] [address] [address] Juan Hector MD [address] [place] [address] Social History Tobacco Use Types Packs/Day Years Used Date Smoking Tobacco: Never Assessed Comments Unknown Sex and Gender Information Value Date Recorded Sex Assigned at Not on file 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
--- OUTSIDE RECORDS SUMMARY | 2025-06-08 09:06 | XMS_ITS | Encounter Summary ---
Author Organization [facility] Address [address] [place] [address] Care Team Providers Care Instrumentation And Control Technician Name Role Phone Unavailable Primary Care Provider Unavailabl e Encounter Details Date Type Department Care Team (Late st Contact Info) Description 05/06/2001 Outpatient Historical [facility] Health [facility] [address] [facility] [address] [address] Juan Hector MD [address] [place] [address] Social History Tobacco Use Types Packs/Day Years Used Date Smoking Tobacco: Never Assessed Comments Unknown Sex and Gender Information Value Date Recorded Sex Assigned at Not on file Legal Sex Female 3:56 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
--- OUTSIDE RECORDS SUMMARY | 2025-06-08 09:06 | XMS_ITS | Clinical Summary ---
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
--- OUTSIDE RECORDS SUMMARY | 2025-06-08 09:06 | XMS_ITS | Encounter Summary ---
Author Organization [facility] Address [address] [place] [address] Care Team Providers Care Tabulating Supervisor Name Role Phone Unavailable Primary Care Provider Unavailabl e Encounter Details Date Type Department Care Team (Late st Contact Info) Description 04/25/2001 Outpatient Historical [facility] Health [facility] [address] [facility] [address] [address] Juan Hector MD [address] [place] [address] Social History Tobacco Use Types Packs/Day Years Used Date Smoking Tobacco: Never Assessed Comments Unknown Sex and Gender Information Value Date Recorded Sex Assigned at Not on file Legal Sex Female 3:56 AM 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
--- OUTSIDE RECORDS SUMMARY | 2025-06-08 09:06 | XMS_ITS | Encounter Summary ---
Author Organization [facility] Address [address] [place] [address] Care Team Providers Care Automotive Metalsmith Name Role Phone Unavailable Primary Care Provider Unavailabl e Encounter Details Date Type Department Care Team (Late st Contact Info) Description 09/20/2000 Outpatient Historical [facility] Health [facility] [address] [facility] [address] [address] Juan Hector MD [address] [place] [address] Social History Tobacco Use Types Packs/Day Years Used Date Smoking Tobacco: Never Assessed Comments Unknown Sex and Gender Information Value Date Recorded Sex Assigned at Not on file 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
--- OUTSIDE RECORDS SUMMARY | 2025-06-08 09:06 | XMS_ITS | Encounter Summary ---
Author Organization [facility] Address [address] [place] [address] Care Team Providers Care Clinical Staff Educator Name Role Phone Jh Mckenzie NP Primary Care Provider Encounter Details Date Type Department Care Team (Late st Contact Info) Description 02/27/2025 [place] [facility] [facility] [place] [facility] [address] [place] [address] Scanning, Provider Social History Tobacco Use Types Packs/Day Years Used Date Smoking Tobacco: Never Smokeless Tobacco: Never Alcohol Use Standard Drinks/Week Comments Yes 1 (1 standard drink = 0.6 oz pur e alcohol) bi-weekly Comments Unknown Sex and Gender Information Value Date Recorded Sex Assigned at Not on file 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 Gender Identity Not on file Sexual Orientation Not on file documented as of this encounter Plan of Treatment Not on file documented as of this encounter Procedures Procedure Name Priority Date/Time Associated Diagnosis Comments SCAN - RADIOLOGY/IMAGING 02/27/2025 9:28 PM CDT documented in this encounter Results * SCAN - RADIOLOGY/IMAGING (02/27/2025 9:28 PM CDT) Anatomical Region Laterality Modality Other us Provider Scanning Final Result documented in this encounter Visit Diagnoses Not on filedocumented in this encounter Care Teams Clinical Staff Educator Relationship Specialty Start Date End Date Jh Mckenzie REGIONAL PROPERTY MANAGER [address] [place], [place] [id number] PCP - General Nurse Practitioner 11/06/24 documented as of this encounter
--- OUTSIDE RECORDS SUMMARY | 2025-06-08 09:06 | XMS_ITS | Encounter Summary ---
Author Organization [facility] Address [address] [place] [address] Care Team Providers Care Curbstone Setter Name Role Phone Unavailable Primary Care Provider Unavailabl e Encounter Details Date Type Department Care Team (Late st Contact Info) Description 07/07/1999 Outpatient Historical [facility] Health [facility] [address] [facility] [address] [address] Juan Hector MD [address] [place] [address] Social History Tobacco Use Types Packs/Day Years Used Date Smoking Tobacco: Never Assessed Comments Unknown Sex and Gender Information Value Date Recorded Sex Assigned at Not on file 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
--- OUTSIDE RECORDS SUMMARY | 2025-06-08 09:06 | XMS_ITS | Encounter Summary ---
Author Organization [facility] Address [address] [place] [address] Care Team Providers Care Radiology Asst Name Role Phone Miscellaneous, Not In File Primary Care Provider Unavailable Jh Mckenzie NP Primary Care Provider Encounter Details Date Type Department Care Team (Late st Contact Info) Description 02/18/2018 Orders Only [facility] [place] [facility] Information Management [address] [place] [address] Scanning, Provider Social History Tobacco Use Types Packs/Day Years Used Date Smoking Tobacco: Never Smokeless Tobacco: Never Alcohol Use Standard Drinks/Week Comments Yes 1 (1 standard drink = 0.6 oz pur e alcohol) bi-weekly Comments Unknown Sex and Gender Information Value Date Recorded Sex Assigned at Not on file 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 Gender Identity Not on file Sexual Orientation Not on file documented as of this encounter Plan of Treatment Not on file documented as of this encounter Procedures Procedure Name Priority Date/Time Associated Diagnosis Comments CARDIOLOGY DOCUMENT SCAN 02/18/2018 documented in this encounter Results * Cardiology Document Scan (02/18/2018) Anatomical Region Laterality Modality Other us Provider Scanning CV CARDIAC SERVICES PROCEDURES Final Result documented in this encounter Visit Diagnoses Not on filedocumented in this encounter Care Teams Radiology Asst Relationship Specialty Start Date End Date Miscellaneous, Not In File PCP - General 12/18/16 Jh Mckenzie TRAUMA PROGRAM MANAGER [address] [place] [address] PCP - General Nurse Practitioner 11/06/24 documented as of this encounter
--- OUTSIDE RECORDS SUMMARY | 2025-06-08 09:06 | XMS_ITS | Encounter Summary ---
Author Organization [facility] Address [address] [place] [address] Care Team Providers Care Institutional Aide Name Role Phone Unavailable Primary Care Provider Unavailabl e Encounter Details Date Type Department Care Team (Late st Contact Info) Description 08/28/1999 Outpatient Historical [facility] Health [facility] A [address] [facility] [address] [address] Juan Hector MD [address] [place] [address] Social History Tobacco Use Types Packs/Day Years Used Date Smoking Tobacco: Never Assessed Comments Unknown Sex and Gender Information Value Date Recorded Sex Assigned at Not on file 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
== END 2025-06-08 09:00 | disposition home or self-care (01) ==
LOC: ANHIMG 09:02
PROVIDERS: PCP Nurse Practitioner; Visit Provider Obstetrics & Gynecology
DX: Z12.31 Encounter for screening mammogram for malignant neoplasm of breast (principal)
CPT/HCPCS: 77063; 77067